=== PATIENT | female | born 1960 | race Caucasian/White ===

== ENCOUNTER 2025-10-30 11:27 | Inpatient (IN) ==
--- NOTE | 2025-10-30 12:03 | Emergency Department Note ---
Impression & Plan Closed fracture of neck of left femur, Fall ED Provider Note CHIEF COMPLAINT: Left hip fracture HISTORY OF PRESENT ILLNESS: This 64-year-old female patient presents to the emergency department via ambulance from [facility] for evaluation of left hip fracture. Per [facility] staff, the patient fell on Thursday while getting out of bed. The patient landed on her left hip. The patient ambulated immediately after the fall, but on Thursday was not wanting to get out of bed. The patient was getting tramadol for pain control. On Thursday, the patient was complaining of pain in the left hip but was ambulatory despite the pain. She did have an x- ray of the left hip completed which was consistent with fracture. Patient was referred to the emergency department for further evaluation when the x-ray result returned. Per the patient's sister in law, "there is no report of a fall". The patient's [id number] states that the patient was receiving tramadol throughout the weekend for her pain, but was diagnosed with a left hip fracture on x-ray yesterday. She states the cause of injury/fracture is unknown. She states the patient is on a Dementia unit and her reports of the history may not be clear. History provided by: Family Member, [facility] staff, Patient REVIEW OF SYSTEMS: A 10 system review of systems was performed with positives and pertinent negatives listed in the history of present illness. All other systems were reviewed and are negative. ALLERGIES: Elavil, Zithromax, cephalexin, diltiazem, Depakote, Monopril, Levaquin, spironolactone, Tarka, Zonegran PHYSICAL EXAM: VITALS: Vitals are noted on the nurse's note and reviewed by myself. GENERAL: This is a 64 year old female, in no acute distress, nondiaphoretic, well-developed well-nourished. SKIN: The skin was without rashes, erythema, edema, or bruising. There is no tenting of the skin. Capillary refill less than 2 seconds. HEAD: Normocephalic atraumatic. EARS: External auditory canals clear, tympanic membranes pearly gutierrez without erythema or effusion bilaterally. No hemotympanum. Negative spencer sign EYES: Pupils equal round and reactive to light and accommodation. Conjunctivae without injection, sclerae without icterus. Extraocular movements intact. NOSE: Patent, turbinates without inflammation or discharge. No sinus tenderness. MOUTH: Mucous membranes moist. Tonsils are not enlarged. Pharynx without erythema or exudate. Uvula midline. Airway patent. Tongue does not deviate. NECK: Supple without nuchal rigidity. No lymphadenopathy. Cervical spine is nontender. No JVD. HEART: Regular rate and rhythm without murmurs gallops or rubs. LUNGS: Clear to auscultation bilaterally without wheezes, rales or rhonchi. No retractions or accessory muscle use. ABDOMEN: Positive bowel sounds x 4. Soft, nontender, without masses or organomegaly. Barrios sign negative. No guarding or rebound tenderness. MUSCULOSKELETAL: Tenderness to palpation of the anterior aspect of the left pelvis. No muscle atrophy, erythema, or edema noted. Full range of motion without joint tenderness in all extremities. No tenderness to palpation. Normal gait. Strength 5/5 throughout. NEURO: Patient was alert and oriented to person place and time. Normal sensation to light and sharp touch. Deep tendon reflexes 2+ throughout. No focal neurological deficits. An order was placed for continuous cardiac exercise physiologist. The monitor showed a normal sinus rhythm at a ventricular rate of 76 bpm, per my interpretation. EKG was reviewed by myself and found to be sinus bradycardia at a rate of 59 beats per minute and per my interpretation reveals no ST elevation or depression. No T wave inversion. No prior EKG available for comparison. Imaging as interpreted by myself and the radiologist revealed left femoral neck fracture, with radiologist interpretation as above. I agree with the radiologist's findings as based upon my independent interpretation. EMERGENCY DEPARTMENT COURSE: The patient was evaluated as above. The patient presents to the emergency department via ambulance for evaluation of left hip pain. The history is somewhat uncertain, as [facility] staff have provided history that the patient fell 3 days ago, though patient rrhisi-ak-xes/power of deputy attorney general notes there has been no documentation of the fall. Patient was apparently diagnosed as an outpatient with a hip fracture, but there was no documentation provided from the nursing facility regarding this and the patient's [id number] is uncertain of any of the details. Per patient's paperwork/POLST form, patient is to be comfort measures and DNR. Throughout work-up, patient's Czuzjw-[id number] states the patient is not to be comfort measures and would like to proceed with workup anticipating surgical intervention. IV access was obtained, labs were drawn. The patient was medicated with IV acetaminophen for pain control. Labs reviewed. Per my interpretation,No leukocytosis or anemia. No thrombocytopenia. Renal, hepatic function and electrolytes without significant abnormality. Coagulation studies unremarkable. Urinalysis with positive nitrates, white blood cells, leukocyte esterase, bacteria. X-ray of the left hip and pelvis was completed and reviewed by myself and radiologist as noted. This is consistent with a left femoral neck fracture. I discussed findings and workup with the patient and [id number] at bedside. I provided them with options of care, as the patient is listed as comfort measures only. The patient's yiqsho-fw-ipj notes that the patient is not to be comfort measures and that she would like to consider surgery in this patient given the fracture. I did offer to have orthopedics consult on the patient and provide options from their perspective. The patient [id number] would like to proceed with this. I discussed the case with Elvia Ramírez PA-C of orthopedics. She did agree to speak with the patient and family at bedside. She did request CT imaging of the hip. Please see orthopedics dictation regarding further workup and recommendations. Orthopedics did recommend that the patient be admitted to the medicine service and will consider surgery tomorrow. I discussed the case with Dr. Fried, hospitalist on-call. He did agree to evaluate the patient for admission. Please see hospitalist patient regarding ongoing management of this patient. Case was discussed with the attending physician. I attest that I have personally reviewed the patient medication list. I attest that I have reviewed the patient's blood pressure and it was found to be elevated. Suspect this to be situational in nature. GCS: 15 In the evaluation and treatment of this patient the following differential diagnoses were entertained: Fracture, dislocation, neurovascular compromise, compartment syndrome, soft tissue injury, as well as other pathologies. The chart was completed utilizing [employer] Speech voice recognition software. Grammatical errors, random word insertions, pronoun errors, and incomplete sentences are an occasional consequence of this system due to software limitations, ambient noise, and hardware issues. Any formal questions or concerns about the content, text, or information contained within the body of this dictation should be directly addressed to the provider for clarification. Past Med/Surg History Problem List (Updated 10/30/25 @ 16:14 by Vanessa Wong PA-C) Fall (Acute) Closed fracture of neck of left femur (Acute) History of CVA (cerebrovascular accident) Fracture of femoral neck, left, closed Meningioma Fracture of lateral condyle of left elbow Migraine, unspecified, not intractable, without status migrainosus Sleep apnea Cervicalgia Vitamin D3 deficiency Benign essential hypertension Unspecified dementia, unspecified severity, without behavioral disturbance, psychotic disturbance, mood disturbance, and anxiety Nontraumatic intracranial hemorrhage, unspecified Other amnesia Type 2 diabetes mellitus without complications Cognitive communication deficit Muscle weakness Convulsion Social History Current Living Situation: Custodial Allergies Allergies Allergy/AdvReac Type Severity Reaction Status Date / Time amitriptyline [From Elavil] Allergy Unknown Unknown Verified 11/02/24 14:42 azithromycin [From Zithromax] Allergy Unknown Unknown Verified 11/02/24 14:42 cephalexin Allergy Unknown Unknown Verified 11/02/24 14:42 diltiazem Allergy Unknown Unknown Verified 11/02/24 14:42 divalproex sodium Allergy Unknown Unknown Verified 11/02/24 14:42 [From Depakote] fosinopril [From Monopril] Allergy Unknown Unknown Verified 11/02/24 14:42 levofloxacin [From Levaquin] Allergy Unknown Unknown Verified 11/02/24 14:42 spironolactone Allergy Unknown Unknown Verified 11/02/24 14:42 trandolapril [From Tarka] Allergy Unknown Unknown Verified 11/02/24 14:42 verapamil [From Tarka] Allergy Unknown Unknown Verified 11/02/24 14:42 zonisamide [From Zonegran] Allergy Unknown Unknown Verified 11/02/24 14:42 Home Meds Home Medications Medication Instructions Recorded Confirmed acetaminophen 325 mg capsule 650 mg PO Q6H PRN Fever Or Pain 02/09/24 02/01/25 amlodipine 10 mg tablet 10 mg PO HS 02/09/24 11/02/24 bisacodyl 10 mg rectal suppository 10 mg [place] DAILY PRN Constipation 02/09/24 02/01/25 (Dulcolax (bisacodyl)) escitalopram oxalate 5 mg tablet 10 mg PO DAILY 02/09/24 02/01/25 hydralazine 50 mg tablet 50 mg PO TID 02/09/24 02/01/25 hydrochlorothiazide 12.5 mg tablet 12.5 mg PO DAILY 02/09/24 02/01/25 insulin glargine 100 unit/mL (3 10 unit subcut QPM 02/09/24 02/01/25 mL) subcutaneous pen (Basaglar KwikPen U-100 Insulin) magnesium hydroxide 400 mg/5 mL 400 mg PO DAILY PRN Constipation 02/09/24 02/01/25 oral suspension (Milk of Magnesia) potassium chloride 20 mEq 40 meq PO BID 02/09/24 11/02/24 tablet,extended release sennosides 8.6 mg tablet (Senokot) 8.6 mg PO DAILY 02/09/24 11/02/24 sodium phosphates 19 gram-7 118 ml KY DAILY PRN Constipation 02/09/24 11/02/24 gram/118 mL enema buspirone 10 mg tablet 10 mg PO TID 02/11/24 02/01/25 carvedilol 12.5 mg tablet (Coreg) 6.25 mg PO BID 02/11/24 02/01/25 acetaminophen 500 mg tablet 500 mg PO Q12 03/12/24 02/01/25 (Tylenol Extra Strength) atorvastatin 20 mg tablet 20 mg PO DAILY 02/01/25 02/01/25 lamotrigine 150 mg tablet 150 mg PO DAILY 02/01/25 02/01/25 (Lamictal) propranolol 10 mg tablet 10 mg PO BID 02/01/25 02/01/25 Results & Data (ED) Vital Signs Vital Signs - 24 hr 10/30/25 11:16 10/30/25 11:45 10/30/25 13:41 Pulse Rate 76 54 L Pulse Rate [Apical] 76 Pulse Rhythm Regular Pulse Rhythm [Apical] Regular Pulse Strength Normal Pulse Strength [Apical] Normal Respiratory Rate 18 16 Respiratory Effort / Characteristics Non-Labored Spontaneous Non-Labored Spontaneous Respiratory Depth Normal Normal Respiratory Pattern Blood Pressure 156/96 H Blood Pressure [Right Arm] 156/96 H Blood Pressure Mean 116 Blood Pressure Mean [Right Arm] 116 Pulse Oximetry 93 96 Oxygen Delivery Method Room Air Room Air Sepsis New/Unexplained Change in Mental Status No Sepsis Action Taken by Nursing No Action Required 10/30/25 13:45 Pulse Rate Pulse Rate [Apical] 63 Pulse Rhythm Pulse Rhythm [Apical] Regular Pulse Strength Pulse Strength [Apical] Normal Respiratory Rate 16 Respiratory Effort / Characteristics Non-Labored Spontaneous Respiratory Depth Normal Respiratory Pattern Regular Blood Pressure Blood Pressure [Right Arm] 178/91 H Blood Pressure Mean Blood Pressure Mean [Right Arm] 120 Pulse Oximetry 97 Oxygen Delivery Method Room Air Sepsis New/Unexplained Change in Mental Status Sepsis Action Taken by Nursing Laboratory Data 10/30/25 12:36 10/30/25 12:36 Lab Results 10/30/25 10/30/25 Range/Units 12:36 14:12 WBC 7.14 (4.8-10.8) K/ul RBC 4.57 (4.20-5.40) M/uL Hgb 13.4 (12.0-16.0) g/dL Hct 39.9 (37.0-47.0) % MCV 87.3 (80.0-100.0) fL MCH 29.3 (25.0-34.0) pg MCHC 33.6 (32.0-36.0) g/dL RDW Std Deviation 39.8 (36.4-46.3) fL RDW Coeff of Max 12.5 (11.5-14.5) % Plt Count 216 (130-400) K/uL MPV 9.9 (9.4-12.4) fL Immature Gran % (Auto) 0.3 % Neut % (Auto) 65.4 % Lymph % (Auto) 18.9 % [place] % (Auto) 10.5 % Eos % (Auto) 4.5 % Baso % (Auto) 0.4 % Neut # (Auto) 4.67 (1.40-6.50) K/uL Lymph # (Auto) 1.35 (1.20-3.40) K/uL [place] # (Auto) 0.75 H (0.11-0.59) K/uL Eos # (Auto) 0.32 (0.00-0.50) K/uL Baso # (Auto) 0.03 (0.00-0.20) K/uL Immature Gran # (Auto) 0.02 (0.01-0.20) K/uL PT 10.9 (9.0-12.0) Seconds INR 1.0 (0.9-1.1) APTT 26 (21-31) Seconds PTT Ratio 1.0 Sodium 138 (136-145) mmol/L Potassium 4.8 (3.5-5.1) mmol/L Chloride 107 (98-107) mmol/L Carbon Dioxide 25 (21-32) mmol/L Anion Gap 6 (3-11) BUN 17 (6-23) mg/dl Creatinine 0.81 (0.6-1.2) mg/dl Est Cr Clr Drug Dosing 67.0 ml/min eGFR 80.01 BUN/Creatinine Ratio 21.0 H (10-20) Glucose 129 H (70-99(Fasting)) mg/dl Calcium 8.8 (8.6-10.3) mg/dl Total Bilirubin 0.5 (0.2-1.0) mg/dl AST 16 (13-39) U/L ALT 16 (7-52) U/L Alkaline Phosphatase 70 (34-104) U/L Total Protein 6.5 (6.0-8.3) gm/dl Albumin 3.9 (3.4-5.0) gm/dl Globulin 2.6 (2.5-4.0) gm/dl Albumin/Globulin Ratio 1.5 (0.9-2) Urine Color Yellow Urine Appearance Clear (Clear) Urine pH 6.0 (4.5-7.5) Ur Specific [place] 1.015 (1.000-1.030) Urine Protein Trace H (Negative) Urine Glucose (UA) Negative (Negative) Urine Ketones Negative (Negative) Urine Blood Negative (Negative) Urine Nitrite Positive A (Negative) Urine Bilirubin Negative (Negative) Urine Urobilinogen Negative (Negative) Ur Leukocyte Esterase 2+ H (Negative) Urine WBC (Auto) >50 H (0-5) /hpf Urine RBC (Auto) 0-2 (0-2) /hpf U Hyaline Cast (Auto) 3-5 H (0-2) /lpf U Epithel Cells (Auto) 3-5 H (0-2) /hpf Urine Bacteria (Auto) 4+ H (None Seen) Urine Comment Administered Medications Discontinued Medications Acetaminophen (Acetaminophen 500 Mg Tab) 1,000 mg PO NOW STA Stop: 10/30/25 11:59 Last Admin: 10/30/25 12:44 Dose: Not Given Documented By: nrs Acetaminophen (Ofirmev) 1,000 mg in 100 mls @ 400 mls/hr IV NOW STA Stop: 10/30/25 12:29 Last Infusion: 10/30/25 13:10 Dose: Infused Documented By: nrs Admin: 10/30/25 12:43 Dose: 400 mls/hr Documented By: nrs Imaging Data Radiologist's Impression: Hip/Pelvis X-Ray 10/30/25 11:58 XR hip LT 2V w pelvis CLINICAL HISTORY: fall 3 days ago, left hip/anterior pelvic pain COMPARISON: None FINDINGS: There is an acute appearing impacted subcapital left femoral neck fracture. There is an age indeterminate fracture of the left inferior pubic ramus. No proximal right femoral fracture is present. Sacroiliac joints and symphysis pubis are intact. There is moderate left and mild right hip osteoarthritis. IMPRESSION: 1. Acute appearing impacted subcapital left femoral neck fracture. 2. Age indeterminate minimally displaced fracture of the left inferior pubic ramus. ACT 112: Negative or not required by law. Electronically signed by: Dmitriy Hinds M.D. 10/30/2025 2:14 PM Chest X-Ray 10/30/25 12:17 XR chest 1V not portable HISTORY: 64 years-old Female hip fracture, ?fall acute chest trauma status post fall COMPARISON: None TECHNIQUE: AP view the chest FINDINGS: Cardiac silhouette is enlarged. Spondylitic spurring of the spine. No pneumothorax, pleural effusion, airspace consolidation or pulmonary edema. IMPRESSION: No acute process of the chest. ACT 112: Negative or not required by law. The above report was generated using voice recognition software. It may contain grammatical, syntax or spelling errors. Electronically signed by: Martinez Ascencio M.D. 10/30/2025 1:[address] 10/30/25 15:03 CT hip LT wo con HISTORY: 64 years-old Female left hip fracture acute left hip pain COMPARISON: Pelvis and hip radiographs of same day TECHNIQUE: Multiple axial CT images of the left hip were obtained without IV contrast. A dose lowering technique was used consistent with the principals of ALARA. FINDINGS: Decompressed bladder with Higuera catheter in place. Moderate fecal retention in the rectum. Moderate atherosclerosis of the iliac and femoral arteries. No acute intramuscular hematoma. There is a trace joint effusion/hemarthrosis of the left hip. Demineralized appearance of the bones with moderate left hip osteoarthritis. Healed chronic fracture left inferior pubic ramus. There is an acute, comminuted and impacted fracture of the left femoral neck which includes the transcervical and subcapital distributions. No intertrochanteric or subtrochanteric extension. IMPRESSION: 1. Acute, comminuted and impacted fracture of the left femoral neck. 2. Healed chronic fracture deformity of the left inferior pubic ramus. 3. Moderate osteoarthritis of the left hip. ACT 112: Negative or not required by law. The above report was generated using voice recognition software. It may contain grammatical, syntax or spelling errors. Electronically signed by: Martinez Ascencio M.D. 10/30/2025 3:52 PM Discharge Plan Visit Data Chief Complaint: Hip Pain Stated Complaint: HIP PAIN ED Provider: Letitia Vivas ED Midlevel Provider: Vanessa Wong Discharge Problem: Closed fracture of neck of left femur, Fall Patient Disposition: Admitted As Inpatient Condition: Good Forms Stand Alone Forms: [facility] Prescriptions Prescriptions: No Action atorvastatin 20 mg tablet 20 mg PO DAILY lamotrigine [Lamictal] 150 mg tablet 150 mg PO DAILY propranolol 10 mg tablet 10 mg PO BID acetaminophen 325 mg capsule 650 mg PO Q6H PRN (Reason: Fever Or Pain) amlodipine 10 mg tablet 10 mg PO HS insulin glargine [Basaglar KwikPen U-100 Insulin] 100 unit/mL (3 mL) insulin pen 10 unit subcut QPM bisacodyl [Dulcolax (bisacodyl)] 10 mg suppository 10 mg KY DAILY PRN (Reason: Constipation) sodium phosphates 19-7 gram/118 mL enema 118 ml [place] DAILY PRN (Reason: Constipation) escitalopram oxalate 5 mg tablet 10 mg PO DAILY hydralazine 50 mg tablet 50 mg PO TID hydrochlorothiazide 12.5 mg tablet 12.5 mg PO DAILY magnesium hydroxide [Milk of Magnesia] 400 mg/5 mL suspension 400 mg PO DAILY PRN (Reason: Constipation) potassium chloride 20 mEq tablet extended release 40 meq PO BID sennosides [Senokot] 8.6 mg tablet 8.6 mg PO DAILY buspirone 10 mg tablet 10 mg PO TID carvedilol [Coreg] 12.5 mg tablet 6.25 mg PO BID Rx Instructions: must administer with a meal/food acetaminophen [Tylenol Extra Strength] 500 mg Tablet 500 mg PO Q12 Referrals Referrals: Vel Jaime [Non-Staff] -
[2025-10-30] MEDS: ACETAMINOPHEN 1,000 MG/100 ML VIAL IV STA (12:43)
[2025-10-30] MEDS: ACETAMINOPHEN 500 MG TAB PO STA (12:44)
[2025-10-30 13:03] LABS: Hematocrit (blood only) 39.9 % (37.0-47.0); Hemoglobin 13.4 g/dL (12.0-16.0); Immature Granulocytes # (auto) 0.02 K/uL (0.01-0.20); Immature Granulocytes % (auto) 0.3 %; Mean Corpuscular Hemoglobin 29.3 pg (25.0-34.0); Mean Corpuscular Volume 87.3 fL (80.0-100.0); Platelet Count 216 K/uL (130-400); RDW Standard Deviation 39.8 fL (36.4-46.3); Red Blood Count 4.57 M/uL (4.20-5.40); White Blood Count 7.14 K/ul (4.8-10.8)
[2025-10-30 13:11] LABS: Alanine Aminotransferase 16.0 U/L (7-52); Albumin Globulin Ratio 1.5 (0.9-2); Albumin Level 3.9 gm/dl (3.4-5.0); Alkaline Phosphatase 70.0 U/L (34-104); Anion Gap 6.0 (3-11); Bilirubin,Total 0.5 mg/dl (0.2-1.0); Blood Urea Nitrogen 17.0 mg/dl (6-23); Calcium 8.8 mg/dl (8.6-10.3); Carbon Dioxide 25.0 mmol/L (21-32); Chloride 107.0 mmol/L (98-107); Creatinine Clr Calc Pharmacy 67.0 ml/min; Globulin 2.6 gm/dl (2.5-4.0); Glucose 129.0 mg/dl (70-99(Fasting)); Potassium 4.8 mmol/L (3.5-5.1); Sodium 138.0 mmol/L (136-145); Total Protein 6.5 gm/dl (6.0-8.3)
[2025-10-30 13:22] LABS: INR 1.0 (0.9-1.1); Partial Thromboplastin Time 26 Seconds (21-31); Prothrombin Time 10.9 Seconds (9.0-12.0)
--- NOTE | 2025-10-30 13:50 | XRay Report ---
XR chest 1V not portable HISTORY: 64 years-old Female hip fracture, ?fall acute chest trauma status post fall COMPARISON: None TECHNIQUE: AP view the chest FINDINGS: Cardiac silhouette is enlarged. Spondylitic spurring of the spine. No pneumothorax, pleural effusion, airspace consolidation or pulmonary edema. IMPRESSION: No acute process of the chest. ACT 112: Negative or not required by law. The above report was generated using voice recognition software. It may contain grammatical, syntax o r spelling errors. Electronically signed by: Martinez Ascencio M.D. 10/30/2025 1:49 PM
--- NOTE | 2025-10-30 14:15 | XRay Report ---
XR hip LT 2V w pelvis CLINICAL HISTORY: fall 3 days ago, left hip/anterior pelvic pain COMPARISON: None FINDINGS: There is an acute appearing impacted subcapital left femoral neck fracture. There is an ag e indeterminate fracture of the left inferior pubic ramus. No proximal right femoral fracture is pres ent. Sacroiliac joints and symphysis pubis are intact. There is moderate left and mild right hip oste oarthritis. IMPRESSION: 1. Acute appearing impacted subcapital left femoral neck fracture. 2. Age indeterminate minimally displaced fracture of the left inferior pubic ramus. ACT 112: Negative or not required by law. Electronically signed by: Dmitriy Hinds M.D. 10/30/2025 2:14 PM
[2025-10-30 14:38] LABS: Appearance Urine Clear (Clear); Bacteria Urine Automated 4+ (None Seen); Glucose Urine UA Negative (Negative); RBC Urine Automated 0-2 /hpf (0-2); WBC Urine Automated >50 /hpf (0-5)
--- NOTE | 2025-10-30 15:25 | Orthopedic Consultation ---
Date of Service October 30, 2025 Assessment & Plan (1) Fracture of femoral neck, left, closed: Case/imaging reviewed and discussed with Dr Elmore * Recommend admission to hospitalist service to clear for possible OR tomorrow, CT to further evaluate fracture * Disposition: TBD * Daily treatment: Physical Therapy/ Occupational Therapy per protocol * Weight bearing status: non weight bearing left lower extremity until post-op * Pain control * Remainder care per primary team * Discussed with patient and her POA (sister in law) risks and benefits of surgery including pain, infection, bleeding, risk of anesthesia, prolonged healing time, incomplete relief of symptoms, injury to surrounding tissue and DVT they would like to proceed with surgery. Patient to be NPO after midnight for OR tomorrow. * * Patient seen and examined, impacted left femoral neck fracture. Discussed with patient and sister, plan for closed reduction and screw fixation of fracture. History of Present Illness Reason for Consultation: .Left femoral neck fracture Requesting Physician: .Dr. Marquez . Patient is a 64 y/o female with left hip pain after a [facility]. PMH including dementia, h/o CVA, type 2 DM, and HTN. Presents to hospital with left hip pain unable to ambulate. Current workup including left hip x-ray. Orthopedics consulted for management recommendations. At time of exam patient was laying on stretcher on right side with pain noted in left hip. Patients sister in law is present and POA and provides some history stating there has been some miscommunications between the jail and her. She was not made aware of a fall and it was reported she was ambulatory after the fall on Thursday but sister in law states she has been in bed since Thursday unable to ambulate. Pt is a DNR but sister in law states not comfort care measures. Allergies Allergy/AdvReac Type Severity Reaction Status Date / Time amitriptyline [From Elavil] Allergy Unknown Unknown Verified 11/02/24 14:42 azithromycin [From Zithromax] Allergy Unknown Unknown Verified 11/02/24 14:42 cephalexin Allergy Unknown Unknown Verified 11/02/24 14:42 diltiazem Allergy Unknown Unknown Verified 11/02/24 14:42 divalproex sodium Allergy Unknown Unknown Verified 11/02/24 14:42 [From Depakote] fosinopril [From Monopril] Allergy Unknown Unknown Verified 11/02/24 14:42 levofloxacin [From Levaquin] Allergy Unknown Unknown Verified 11/02/24 14:42 spironolactone Allergy Unknown Unknown Verified 11/02/24 14:42 trandolapril [From Tarka] Allergy Unknown Unknown Verified 11/02/24 14:42 verapamil [From Tarka] Allergy Unknown Unknown Verified 11/02/24 14:42 zonisamide [From Zonegran] Allergy Unknown Unknown Verified 11/02/24 14:42 Home Medications Medication Instructions Recorded Confirmed Type acetaminophen 325 mg capsule 650 mg PO Q6H 02/09/24 10/30/25 History bisacodyl 10 mg rectal suppository 10 mg RI DAILY PRN Constipation 02/09/24 10/30/25 History (Dulcolax (bisacodyl)) escitalopram oxalate 5 mg tablet 10 mg PO DAILY 02/09/24 10/30/25 History hydralazine 50 mg tablet 50 mg PO TID 02/09/24 10/30/25 History magnesium hydroxide 400 mg/5 mL 30 ml PO DAILY PRN Constipation 02/09/24 10/30/25 History oral suspension (Milk of Magnesia) potassium chloride 20 mEq 40 meq PO BID 02/09/24 10/30/25 History tablet,extended release sennosides 8.6 mg tablet (Senokot) 8.6 mg PO DAILY 02/09/24 10/30/25 History sodium phosphates 19 gram-7 118 ml RI DAILY PRN Constipation 02/09/24 10/30/25 History gram/118 mL enema atorvastatin 20 mg tablet 20 mg PO DAILY 02/01/25 10/30/25 History lamotrigine 150 mg tablet 200 mg PO DAILY 02/01/25 10/30/25 History (Lamictal) propranolol 10 mg tablet 20 mg PO BID 02/01/25 10/30/25 History Lactobacillus 1 cap PO DAILY 10/30/25 10/30/25 History Rodrigue External Lotion 1 applic topical BID 10/30/25 10/30/25 History acetaminophen 325 mg tablet 650 mg PO Q6H PRN pain/fever 10/30/25 10/30/25 History dextrose 40 % oral gel 1 ea PO UD PRN Hypoglycemia 10/30/25 10/30/25 History glucagon HCl 1 mg solution for 1 mg IM .[id number] PRN Hypoglycemia 10/30/25 10/30/25 History injection (Glucagon (HCl) Emergency Kit) ipratropium 0.5 mg-albuterol 3 mg 3 ml inhalation Q6H PRN 10/30/25 10/30/25 History (2.5 mg base)/3 mL nebulization cough/wheezing soln loperamide 2 mg tablet 1 mg PO Q12H PRN Diarrhea 10/30/25 10/30/25 History (Anti-Diarrheal (loperamide)) quetiapine 25 mg tablet (Seroquel) 25 mg PO HS 10/30/25 10/30/25 History tramadol 50 mg tablet 50 mg PO Q6H PRN Pain 10/30/25 10/30/25 History Past Med/Surg History Problem List (Updated 10/31/25 @ 11:35 by Ruddy Sotelo MD) UTI (urinary tract infection) Pathological fracture of left hip due to age-related osteoporosis Fall (Acute) Closed fracture of neck of left femur (Acute) Fracture of femoral neck, left, closed Fracture of lateral condyle of left elbow Migraine, unspecified, not intractable, without status migrainosus Nontraumatic intracranial hemorrhage, unspecified Other amnesia Muscle weakness Convulsion Medical History (Updated 10/31/25 @ 11:35 by Ruddy Sotelo MD) Encounter for pre-operative examination Hyperlipidemia Dementia History of seizure disorder 2018 abnormal EEG with seizure focus History of trigeminal neuralgia History of throat cancer Injury of right common femoral artery s/p repair 2018 Intracerebral aneurysm Carpal tunnel syndrome of left wrist 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 Meningioma Cognitive communication deficit Type 2 diabetes mellitus without complications Unspecified dementia, unspecified severity, without behavioral disturbance, psychotic disturbance, mood disturbance, and anxiety Benign essential hypertension Vitamin D3 deficiency Cervicalgia Sleep apnea History of CVA (cerebrovascular accident) right basal ganglia hemorrhagic stroke - 05/2023 Surgical History Hx of appendectomy Hx of cholecystectomy H/O brain surgery in addition to aneurysm clipping, patient has had multiple other surgeries per report S/P bilateral foot surgery multiple History of hysterectomy H/O partial adrenalectomy 10/01/2018 H/O ligation of vein right leg - 04/2015 S/P clamping of cerebral aneurysm [facility] - 2 clips Family History Mother Lung cancer Other Diabetes Hypertension Social History (Updated 10/31/25 @ 04:31 by Baldo Fried MD) Smoking Status: Former smoker Tobacco Type: Cigarettes Age Started Using Tobacco: 16; Smoking End Date: 2022; Hx Alcohol Use: No Hx Substance Use: No Preferred Language: Maori Communication Ability: Effective Principal Hardware Architect Required: No Beliefs That Will Affect Care: None marital status: Single Current Living Situation: [facility] current occupational status: disabled current occupation: research & development work How many Children do You have: 0 Other Information That Helps Us Care for You: No other: previously lived in [facility] Feels Safe at Home: Yes Safety Concerns: Feels Safe At This Time Assistive Devices: None Review of Systems All systems reviewed & are unremarkable except as noted in HPI & below. Physical Exam * General: Alert and oriented, no acute distress * Constitutional: well-developed, well-nourished. * Respiratory: Normal respiratory effort, no distress * Gastrointestinal: No tenderness to palpation, no rigidity or guarding. * Skin: No rash or lesion. * Neurologic: Grossly normal * Musculoskeletal: Left hip irritable with log roll. Tenderness along anterior aspect. AROM foot/ankle intact. Sensation intact plantar/dorsal foot. Brisk capillary refill. . Results & Data Results & Data Laboratory Results . Laboratory Results - last 48 hr 10/30/25 10/30/25 12:36 14:12 WBC 7.14 RBC 4.57 Hgb 13.4 Hct 39.9 MCV 87.3 MCH 29.3 MCHC 33.6 RDW Std Deviation 39.8 RDW Coeff of Max 12.5 Plt Count 216 MPV 9.9 Immature Gran % (Auto) 0.3 Neut % (Auto) 65.4 Lymph % (Auto) 18.9 [place] % (Auto) 10.5 Eos % (Auto) 4.5 Baso % (Auto) 0.4 Neut # (Auto) 4.67 Lymph # (Auto) 1.35 [place] # (Auto) 0.75 H Eos # (Auto) 0.32 Baso # (Auto) 0.03 Immature Gran # (Auto) 0.02 PT 10.9 INR 1.0 APTT 26 PTT Ratio 1.0 Sodium 138 Potassium 4.8 Chloride 107 Carbon Dioxide 25 Anion Gap 6 BUN 17 Creatinine 0.81 Est Cr Clr Drug Dosing 67.0 eGFR 80.01 BUN/Creatinine Ratio 21.0 H Glucose 129 H Calcium 8.8 Total Bilirubin 0.5 AST 16 ALT 16 Alkaline Phosphatase 70 Total Protein 6.5 Albumin 3.9 Globulin 2.6 Albumin/Globulin Ratio 1.5 Urine Color Yellow Urine Appearance Clear Urine pH 6.0 Ur Specific Bronson 1.015 Urine Protein Trace H Urine Glucose (UA) Negative Urine Ketones Negative Urine Blood Negative Urine Nitrite Positive A Urine Bilirubin Negative Urine Urobilinogen Negative Ur Leukocyte Esterase 2+ H Urine WBC (Auto) >50 H Urine RBC (Auto) 0-2 U Hyaline Cast (Auto) 3-5 H U Epithel Cells (Auto) 3-5 H Urine Bacteria (Auto) 4+ H Urine Comment Diagnostic Findings . Hip/Pelvis X-Ray 10/30/25 11:58 XR hip LT 2V w pelvis CLINICAL HISTORY: fall 3 days ago, left hip/anterior pelvic pain COMPARISON: None FINDINGS: There is an acute appearing impacted subcapital left femoral neck fracture. There is an age indeterminate fracture of the left inferior pubic ramus. No proximal right femoral fracture is present. Sacroiliac joints and symphysis pubis are intact. There is moderate left and mild right hip osteoarthritis. IMPRESSION: 1. Acute appearing impacted subcapital left femoral neck fracture. 2. Age indeterminate minimally displaced fracture of the left inferior pubic ramus. ACT 112: Negative or not required by law. Electronically signed by: Dmitriy Hinds M.D. 10/30/2025 2:14 PM Chest X-Ray 10/30/25 12:17 XR chest 1V not portable HISTORY: 64 years-old Female hip fracture, ?fall acute chest trauma status post fall COMPARISON: None TECHNIQUE: AP view the chest FINDINGS: Cardiac silhouette is enlarged. Spondylitic spurring of the spine. No pneumothorax, pleural effusion, airspace consolidation or pulmonary edema. IMPRESSION: No acute process of the chest. ACT 112: Negative or not required by law. The above report was generated using voice recognition software. It may contain grammatical, syntax or spelling errors. Electronically signed by: Martinez Ascencio M.D. 10/30/2025 1:49 PM PG Care Time/CCT Total # of Minutes Spent Total Time Spent with Patient: Total time spent is greater than 50% in coordination of care (as documented) at patient's floor/unit and/or counseling patient: [place] [address] IN/OBS CONSULT LVL 4,60M Patient Type New Diagnoses Fracture of femoral neck, left, closed S72.002A
--- NOTE | 2025-10-30 15:54 | CT Scan Report ---
CT hip LT wo con HISTORY: 64 years-old Female left hip fracture acute left hip pain COMPARISON: Pelvis and hip radiographs of same day TECHNIQUE: Multiple axial CT images of the left hip were obtained without IV contrast. A dose lowerin g technique was used consistent with the principals of LONA. FINDINGS: Decompressed bladder with Higuera catheter in place. Moderate fecal retention in the rectum. Moderate a therosclerosis of the iliac and femoral arteries. No acute intramuscular hematoma. There is a trace j oint effusion/hemarthrosis of the left hip. Demineralized appearance of the bones with moderate left hip osteoarthritis. Healed chronic fracture left inferior pubic ramus. There is an acute, comminuted and impacted fracture of the left femoral neck which includes the transcervical and subcapital distri butions. No intertrochanteric or subtrochanteric extension. IMPRESSION: 1. Acute, comminuted and impacted fracture of the left femoral neck. 2. Healed chronic fracture deformity of the left inferior pubic ramus. 3. Moderate osteoarthritis of the left hip. ACT 112: Negative or not required by law. The above report was generated using voice recognition software. It may contain grammatical, syntax o r spelling errors. Electronically signed by: Martinez Ascencio M.D. 10/30/2025 3:52 PM
--- NOTE | 2025-10-30 16:19 | History & Physical Report ---
Date of Service October 30, 2025 Assessment & Plan (1) Closed fracture of neck of left femur: (2) Pathological fracture of left hip due to age-related osteoporosis: (3) UTI (urinary tract infection): (4) Benign essential hypertension: (5) Type 2 diabetes mellitus without complications: (6) Meningioma: (7) Hyperlipidemia: (8) Dementia: (9) S/P clamping of cerebral aneurysm: (10) H/O partial adrenalectomy: (11) History of CVA (cerebrovascular accident): (12) Vitamin D3 deficiency: Plan 64yo female with history of intracerebral aneurysm s/p clipping x 2 ([facility], date uncertain), dementia, meningioma, prior right basal ganglia 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 x-rays and CT confirm a left hip fracture. #left hip pathological fracture due to age-related osteoporosis - -appreciate orthopedic consult by [facility] -tentative plan is ORIF of L hip fracture on 10/31/25 -NPO after MN for such -start isotonic fluids tomorrow am while NPO -bedrest until surgery, zhou, pain meds prn -SCDs for DVT proph now, then post-op can use asa 81mg BID or other chemical means -check 25-OH vit D level am -has keflex allergy on allergy list; I reviewed multiple records and cannot find what her reaction was to such; to be safe will use vancomycin for preop prophylactic antibiotics -from a cardiopulmonary standpoint she appears optimized for surgery tomorrow -due to prior history of adrenalectomy (details unknown) will need to watch for any signs of adrenal insufficiency post-op #dementia - -advanced by history -currently in locked dementia unit at [facility]; her [id number] states that shortly after she was admitted to [facility] (personal care portion?) she escaped the building and shortly after that was placed in the dementia unit -at risk of hospital delirium -will order melatonin HS -avoid sedatives -delirium prevention strategies - blinds open during the day, closed at night, etc. -cont seroquel HS - chronic med for her #uncontrolled HTN - -suspect she did not have her medicines prior to coming to hospital and/or pain is contributing to high readings -simply resume her usual regimen of hydralazine and propranolol -titrate meds as needed #T2DM - -check Hba1c while here -check BSGs ac/hs -novolog SSI -add basal insulin if needed #history of meningioma - -has seen neurosurgery & neurology in [place] along with Dr Obrien with [facility] in the past -last documented MRI brain: -due to the fall she had and the abrasion on her nose I elected to get CT head and CT c-spine today -CT head without ICH; meningiomas and aneurysm clips seen; CT head stable -Cervical spine CT w/o fracture #history of intracerebral aneurysm s/p clipping - -[facility] - year of surgery uncertain, other details uncertain -clips stable on CT head today #history of right basal ganglia hemorrhagic stroke - -no ICH on CT head today #JORDAN - -not on CPAP or BIPAP by report #suspected UTI - -u/a suggestive of UTI -has keflex allergy, levaquin allergy - details unknown -thus, ertapenem x 1 now and future therapy will depend on urine cx results #history of seizure disorder - -dating back to 2017? 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 She currently resides in the locked dementia unit at [facility]. Throughout this weekend she had ongoing pain treated with tramadol. At some point on Thursday she had a left hip x-ray which ultimately showed evidence of a left hip fracture and therefore she was brought to [facility] for evaluation. Upon arrival to [facility] her x-rays indeed show evidence of a left hip fracture. During my assessment the patient was resting comfortably in bed. Her [id number] Joslyn was present at bedside who provided nearly all of the history. Patient herself only complained of pain in the left groin/left hip region. Denied headache, arm pain b/l, right leg pain, chest pain, back pain, or abdominal pain. Due to her dementia she was unable to provide any meaningful history. Multiple times she said she "fell at home." Allergies Allergy/AdvReac Type Severity Reaction Status Date / Time amitriptyline [From Elavil] Allergy Unknown Unknown Verified 11/02/24 14:42 azithromycin [From Zithromax] Allergy Unknown Unknown Verified 11/02/24 14:42 cephalexin Allergy Unknown Unknown Verified 11/02/24 14:42 diltiazem Allergy Unknown Unknown Verified 11/02/24 14:42 divalproex sodium Allergy Unknown Unknown Verified 11/02/24 14:42 [From Depakote] fosinopril [From Monopril] Allergy Unknown Unknown Verified 11/02/24 14:42 levofloxacin [From Levaquin] Allergy Unknown Unknown Verified 11/02/24 14:42 spironolactone Allergy Unknown Unknown Verified 11/02/24 14:42 trandolapril [From Tarka] Allergy Unknown Unknown Verified 11/02/24 14:42 verapamil [From Tarka] Allergy Unknown Unknown Verified 11/02/24 14:42 zonisamide [From Zonegran] Allergy Unknown Unknown Verified 11/02/24 14:42 Home Medications Medication Instructions Recorded Confirmed Type acetaminophen 325 mg capsule 650 mg PO Q6H 02/09/24 10/30/25 History bisacodyl 10 mg rectal suppository 10 mg PA DAILY PRN Constipation 02/09/24 10/30/25 History (Dulcolax (bisacodyl)) escitalopram oxalate 5 mg tablet 10 mg PO DAILY 02/09/24 10/30/25 History hydralazine 50 mg tablet 50 mg PO TID 02/09/24 10/30/25 History magnesium hydroxide 400 mg/5 mL 30 ml PO DAILY PRN Constipation 02/09/24 10/30/25 History oral suspension (Milk of Magnesia) potassium chloride 20 mEq 40 meq PO BID 02/09/24 10/30/25 History tablet,extended release sennosides 8.6 mg tablet (Senokot) 8.6 mg PO DAILY 02/09/24 10/30/25 History sodium phosphates 19 gram-7 118 ml PA DAILY PRN Constipation 02/09/24 10/30/25 History gram/118 mL enema atorvastatin 20 mg tablet 20 mg PO DAILY 02/01/25 10/30/25 History lamotrigine 150 mg tablet 200 mg PO DAILY 02/01/25 10/30/25 History (Lamictal) propranolol 10 mg tablet 20 mg PO BID 02/01/25 10/30/25 History Lactobacillus 1 cap PO DAILY 10/30/25 10/30/25 History Rodrigue External Lotion 1 applic topical BID 10/30/25 10/30/25 History acetaminophen 325 mg tablet 650 mg PO Q6H PRN pain/fever 10/30/25 10/30/25 History dextrose 40 % oral gel 1 ea PO UD PRN Hypoglycemia 10/30/25 10/30/25 History glucagon HCl 1 mg solution for 1 mg IM .[id number] PRN Hypoglycemia 10/30/25 10/30/25 History injection (Glucagon (HCl) Emergency Kit) ipratropium 0.5 mg-albuterol 3 mg 3 ml inhalation Q6H PRN 10/30/25 10/30/25 History (2.5 mg base)/3 mL nebulization cough/wheezing soln loperamide 2 mg tablet 1 mg PO Q12H PRN Diarrhea 10/30/25 10/30/25 History (Anti-Diarrheal (loperamide)) quetiapine 25 mg tablet (Seroquel) 25 mg PO HS 10/30/25 10/30/25 History tramadol 50 mg tablet 50 mg PO Q6H PRN Pain 10/30/25 10/30/25 History Past Med/Surg History Problem List (Updated 10/31/25 @ 04:32 by Baldo Fried MD) UTI (urinary tract infection) Pathological fracture of left hip due to age-related osteoporosis Fall (Acute) Closed fracture of neck of left femur (Acute) Fracture of femoral neck, left, closed Fracture of lateral condyle of left elbow Migraine, unspecified, not intractable, without status migrainosus Nontraumatic intracranial hemorrhage, unspecified Other amnesia Muscle weakness Convulsion Medical History (Updated 10/31/25 @ 04:32 by Baldo Fried MD) Hyperlipidemia Dementia History of seizure disorder 2018 abnormal EEG with seizure focus History of trigeminal neuralgia History of throat cancer Injury of right common femoral artery s/p repair 2018 Intracerebral aneurysm Carpal tunnel syndrome of left wrist 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 Meningioma Cognitive communication deficit Type 2 diabetes mellitus without complications Unspecified dementia, unspecified severity, without behavioral disturbance, psychotic disturbance, mood disturbance, and anxiety Benign essential hypertension Vitamin D3 deficiency Cervicalgia Sleep apnea History of CVA (cerebrovascular accident) right basal ganglia hemorrhagic stroke - 05/2023 Surgical History (Updated 10/31/25 @ 04:30 by Baldo Fried MD) Hx of appendectomy Hx of cholecystectomy H/O brain surgery in addition to aneurysm clipping, patient has had multiple other surgeries per report S/P bilateral foot surgery multiple History of hysterectomy H/O partial adrenalectomy 10/01/2018 H/O ligation of vein right leg - 04/2015 S/P clamping of cerebral aneurysm [facility] - 2 clips Family History (Updated 10/31/25 @ 04:30 by Baldo Fried MD) Mother Lung cancer Other Diabetes Hypertension Social History (Updated 10/31/25 @ 04:31 by Baldo Fried MD) Smoking Status: Former smoker Tobacco Type: Cigarettes Age Started Using Tobacco: 16; Hx Alcohol Use: No Hx Substance Use: No Preferred Language: Yi Communication Ability: Effective [employer] Required: No Beliefs That Will Affect Care: None marital status: Single Current Living Situation: Skilled Nursing current occupational status: disabled current occupation: research & development work How many Children do You have: 0 other: previously lived in [facility] Feels Safe at Home: Yes Assistive Devices: None Review of Systems 2 Review of Systems: ROS limited due to cognitive impairment however she denies the following - gen - fevers/chills eyes - blurry vision HENT - runny nose, sore throat, or ear pain face/head - facial pain or headache neck - neck pain CV - chest pain pulm - dyspnea GI - abd pain or vomiting; did state she had a little nausea, however - zhou now in place musculo - b/l arm pain, right leg pain; does c/o left hip pain neuro - headache spine - back pain Physical Exam 2 Physical Exam: gen - lying comfortably in bed, holding a stuffed animal, NAD eyes - PERRL HENT - MMM, no lesions, poor dentition; nose with an abrasion; no facial pain to palpation any location neck - no pain to palpation over the c-spine elements; no JVD, no lymph nodes, no goiter heart - RRR, s1 s2, no murmur lungs - CTA b/l abd - soft NT ND BS+ ext - left leg is mildly shortened vs the RLE; left leg slightly externally rotated; left proximal thigh mildly swollen in comparison to the RLE; pulses b/l feet 2+; no edema of ankles skin - no rash psych - oriented to person only neuro - strength 5/5 b/l arms; moves toes of left foot without issue; right leg strength 5/5 proximal and distal muscles; no facial droop; speech clear; DTRs 2+ b/l arms musculo - complete look at all limbs only shows the left hip findings as above; I do not see any other injury or area of trauma Results & Data Results & Data Vital Signs (Past 12 Hours) Vital Signs Pulse Pulse Resp BP BP Pulse Ox O2 Del Method 10/30/25 13:45 63 16 178/91 H 97 Room Air 10/30/25 13:41 54 L 10/30/25 11:45 76 16 156/96 H 96 Room Air 10/30/25 11:16 76 18 156/96 H 93 Room Air Laboratory Results Laboratory Results - last 24 hr 10/30/25 10/30/25 12:36 14:12 WBC 7.14 RBC 4.57 Hgb 13.4 Hct 39.9 MCV 87.3 MCH 29.3 MCHC 33.6 RDW Std Deviation 39.8 RDW Coeff of Max 12.5 Plt Count 216 MPV 9.9 Immature Gran % (Auto) 0.3 Neut % (Auto) 65.4 Lymph % (Auto) 18.9 [place] % (Auto) 10.5 Eos % (Auto) 4.5 Baso % (Auto) 0.4 Neut # (Auto) 4.67 Lymph # (Auto) 1.35 [place] # (Auto) 0.75 H Eos # (Auto) 0.32 Baso # (Auto) 0.03 Immature Gran # (Auto) 0.02 PT 10.9 INR 1.0 APTT 26 PTT Ratio 1.0 Sodium 138 Potassium 4.8 Chloride 107 Carbon Dioxide 25 Anion Gap 6 BUN 17 Creatinine 0.81 Est Cr Clr Drug Dosing 67.0 eGFR 80.01 BUN/Creatinine Ratio 21.0 H Glucose 129 H Calcium 8.8 Magnesium 2.0 Total Bilirubin 0.5 AST 16 ALT 16 Alkaline Phosphatase 70 Total Protein 6.5 Albumin 3.9 Globulin 2.6 Albumin/Globulin Ratio 1.5 Urine Color Yellow Urine Appearance Clear Urine pH 6.0 Ur Specific [place] 1.015 Urine Protein Trace H Urine Glucose (UA) Negative Urine Ketones Negative Urine Blood Negative Urine Nitrite Positive A Urine Bilirubin Negative Urine Urobilinogen Negative Ur Leukocyte Esterase 2+ H Urine WBC (Auto) >50 H Urine RBC (Auto) 0-2 U Hyaline Cast (Auto) 3-5 H U Epithel Cells (Auto) 3-5 H Urine Bacteria (Auto) 4+ H Urine Comment Diagnostic Findings Hip/Pelvis X-Ray 10/30/25 11:58 XR hip LT 2V w pelvis CLINICAL HISTORY: fall 3 days ago, left hip/anterior pelvic pain COMPARISON: None FINDINGS: There is an acute appearing impacted subcapital left femoral neck fracture. There is an age indeterminate fracture of the left inferior pubic ramus. No proximal right femoral fracture is present. Sacroiliac joints and symphysis pubis are intact. There is moderate left and mild right hip osteoarthritis. IMPRESSION: 1. Acute appearing impacted subcapital left femoral neck fracture. 2. Age indeterminate minimally displaced fracture of the left inferior pubic ramus. ACT 112: Negative or not required by law. Electronically signed by: Dmitriy Hinds M.D. 10/30/2025 2:14 PM Chest X-Ray 10/30/25 12:17 XR chest 1V not portable HISTORY: 64 years-old Female hip fracture, ?fall acute chest trauma status post fall COMPARISON: None TECHNIQUE: AP view the chest FINDINGS: Cardiac silhouette is enlarged. Spondylitic spurring of the spine. No pneumothorax, pleural effusion, airspace consolidation or pulmonary edema. IMPRESSION: No acute process of the chest. ACT 112: Negative or not required by law. The above report was generated using voice recognition software. It may contain grammatical, syntax or spelling errors. Electronically signed by: Martinez Ascencio M.D. 10/30/2025 1:[address] 10/30/25 15:03 CT hip LT wo con HISTORY: 64 years-old Female left hip fracture acute left hip pain COMPARISON: Pelvis and hip radiographs of same day TECHNIQUE: Multiple axial CT images of the left hip were obtained without IV contrast. A dose lowering technique was used consistent with the principals of LONA. FINDINGS: Decompressed bladder with Zhou catheter in place. Moderate fecal retention in the rectum. Moderate atherosclerosis of the iliac and femoral arteries. No acute intramuscular hematoma. There is a trace joint effusion/hemarthrosis of the left hip. Demineralized appearance of the bones with moderate left hip osteoarthritis. Healed chronic fracture left inferior pubic ramus. There is an acute, comminuted and impacted fracture of the left femoral neck which includes the transcervical and subcapital distributions. No intertrochanteric or subtrochanteric extension. IMPRESSION: 1. Acute, comminuted and impacted fracture of the left femoral neck. 2. Healed chronic fracture deformity of the left inferior pubic ramus. 3. Moderate osteoarthritis of the left hip. ACT 112: Negative or not required by law. The above report was generated using voice recognition software. It may contain grammatical, syntax or spelling errors. Electronically signed by: Martinez Ascencio M.D. 10/30/2025 3:[address] 10/30/25 17:16 CT cervical spine without IV contrast History: Trauma Comparison: None Technique: Using multidetector thin collimation helical acquisition technique, axial, coronal and sagittal CT images through the cervical spine were obtained without intravenous contrast. Dose reduction techniques were achieved by using automatic exposure control and/or adjustment of mA and/or kV according to patient size and/or use of iterative reconstruction technique. Findings: The cervical vertebrae are normally aligned. Straightened cervical lordosis. No acute fracture or subluxation. No prevertebral edema. Mild to moderate discogenic multilevel degenerative changes. Hypertrophic degenerative facet changes are seen. No abnormality of the paraspinous soft tissues. Impression: No acute fracture or traumatic subluxation. Electronically signed by Mevlin Ramírez 10-30-2025 6:[address] 10/30/25 17:16 CT head without contrast History: Fall Comparison: 10/22/2024 Technique: Using multidetector thin collimation helical acquisition technique, axial, coronal and sagittal CT images from the skull base to the vertex were obtained without intravenous contrast. Dose reduction techniques were achieved by using automatic exposure control and/or adjustment of mA and/or kV according to patient size and/or use of iterative reconstruction technique. Findings: No intracranial hemorrhage, mass-effect, or midline shift. The ventricles are proportionate to the cerebral sulci. The gutierrez to white matter differentiation of the cerebral hemispheres is preserved. The basal cisterns are patent. Scattered aneurysm coils about the sella similar to prior. Stable calcified densities overlying the right parietal and posterior frontal lobe, possibly meningiomas. There is moderate cerebral atrophy. Moderate, patchy low-attenuation changes in the white matter, most suggestive of sequelae of chronic small vessel ischemic disease. The visualized paranasal sinuses are clear. Mastoid air cells are clear. Impression: No acute intracranial pathology. Electronically signed by Melvin Ramírez 10-30-2025 6:08 PM ECG Additional Comments: EKG - NSR, no ST changes; LVH by voltage criteria Code Status & VTE Plan Code Status DNR/DNI - confirmed with pt's power of divorce attorney PG Care Time/CCT Total # of Minutes Spent Total Time Spent with Patient: Total time spent is greater than 50% in coordination of care (as documented) at patient's floor/unit and/or counseling patient: Coding Level of Care Code 80413 INT INP/OBS CARE 3/75MIN Diagnoses Closed fracture of neck of left femur S72.002A Pathological fracture of left hip due to age-related osteoporosis M80.052A UTI (urinary tract infection) N39.0 Benign essential hypertension I10 Type 2 diabetes mellitus without complications E11.9 Meningioma D32.9 Hyperlipidemia E78.5 Dementia F03.90 S/P clamping of cerebral aneurysm Z98.890; Z86.79 H/O partial adrenalectomy E89.6 History of CVA (cerebrovascular accident) Z86.73 Vitamin D3 deficiency E55.9
[2025-10-30] MEDS: ERTAPENEM 1000MG 1,000 MG/10 ML SYR IV STA (16:42)
[2025-10-30 17:11] LABS: Magnesium 2.0 mg/dl (1.7-2.4)
--- NOTE | 2025-10-30 18:08 | CT Scan Report ---
CT head without contrast History: Fall Comparison: 10/22/2024 Technique: Using multidetector thin collimation helical acquisition technique, axial, coronal and sagittal CT images from the skull base to the vertex were obtained without intravenous contrast. Dose reduction techniques were achieved by using automatic exposure control and/or adjustment of mA and/or kV according to patient size and/or use of iterative reconstruction technique. Findings: No intracranial hemorrhage, mass-effect, or midline shift. The ventricles are proportionate to the cerebral sulci. The gutierrez to white matter differentiation of the cerebral hemispheres is preserved. The basal cisterns are patent. Scattered aneurysm coils about the sella similar to prior. Stable calcified densities overlying the right parietal and posterior frontal lobe, possibly meningiomas. There is moderate cerebral atrophy. Moderate, patchy low-attenuation changes in the white matter, most suggestive of sequelae of chronic small vessel ischemic disease. The visualized paranasal sinuses are clear. Mastoid air cells are clear. Impression: No acute intracranial pathology. Electronically signed by Melvin Ramírez 10-30-2025 6:08 PM
--- NOTE | 2025-10-30 18:09 | CT Scan Report ---
CT cervical spine without IV contrast History: Trauma Comparison: None Technique: Using multidetector thin collimation helical acquisition technique, axial, coronal and sagittal CT images through the cervical spine were obtained without intravenous contrast. Dose reduction techniques were achieved by using automatic exposure control and/or adjustment of mA and/or kV according to patient size and/or use of iterative reconstruction technique. Findings: The cervical vertebrae are normally aligned. Straightened cervical lordosis. No acute fracture or subluxation. No prevertebral edema. Mild to moderate discogenic multilevel degenerative changes. Hypertrophic degenerative facet changes are seen. No abnormality of the paraspinous soft tissues. Impression: No acute fracture or traumatic subluxation. Electronically signed by Melvin Ramírez 10-30-2025 6:09 PM
[2025-10-30] MEDS ORDERED: ALBUT/IPRATROP 3MG/0.5MG NEB 3 ML VIAL INH PRN (18:25)
[2025-10-30] MEDS ORDERED: ONDANSETRON INJ 2 MG/ML 2 ML VIAL IV PRN (18:25)
[2025-10-30] MEDS ORDERED: VANCOMYCIN CONSULT ACTIVE PRN (18:25)
[2025-10-30] MEDS ORDERED: NALOXONE HCL 0.4 MG/1 ML VIAL/CARP IV PRN (18:25)
[2025-10-30] MEDS ORDERED: MoRPHine SULFATE 2 MG/ML CARP IV PRN (18:25)
[2025-10-30] MEDS: PROPRANOLOL HCL 20 MG TAB PO STA (18:47)
[2025-10-30 20:35] LABS: Influenza A virus by PCR Negative (Neg); Influenza B virus by PCR Negative (Neg); SARS CoV2 RNA(COVID-19) Ceph NEGATIVE (Negative)
[2025-10-30] MEDS: ACETAMINOPHEN 500 MG TAB PO SCH (20:48)
[2025-10-30] MEDS: PROPRANOLOL HCL 20 MG TAB PO SCH (20:49)
[2025-10-31] MEDS: SODIUM CHLORIDE 0.9% 1,000 ML IV SCH (04:47)
[2025-10-31] MEDS: VANCOMYCIN HCL 1,250 MG in SODIUM CHLORIDE 0.9% 250 ML IV SCH ×2 (05:40→14:34)
[2025-10-31] MEDS: INSULIN ASPART PER UNIT CHARGE SC SCH ×2 (06:05→17:00)
[2025-10-31 07:24] LABS: Anion Gap 10.0 (3-11); Blood Urea Nitrogen 18.0 mg/dl (6-23); Calcium 8.5 mg/dl (8.6-10.3); Carbon Dioxide 24.0 mmol/L (21-32); Chloride 106.0 mmol/L (98-107); Creatinine Clr Calc Pharmacy 55.5 ml/min; Glucose 102.0 mg/dl (70-99(Fasting)); Potassium 3.8 mmol/L (3.5-5.1); Sodium 140.0 mmol/L (136-145)
[2025-10-31 07:32] LABS: Thyroid Stimulating Hormone 2.979 uIu/ml (0.300-4.500)
[2025-10-31] MEDS: ESCITALOPRAM OXALATE 10 MG TAB PO SCH (07:48)
[2025-10-31] MEDS: ADVANCED PROBIOTIC 625 MG CAPSULE PO SCH (07:48)
[2025-10-31] MEDS: lamoTRIgine 100 MG TAB PO SCH (07:48)
[2025-10-31] MEDS: ATORVASTATIN 20 MG TAB PO SCH (07:49)
[2025-10-31 08:10] LABS: Hemoglobin A1C 6.0 % (4.5-5.6)
[2025-10-31] MEDS: SENNA 8.6 MG TAB PO SCH (09:14)
--- NOTE | 2025-10-31 09:40 | Orthopedic Progress Note ---
Date of Service October 31, 2025 Assessment & Plan (1) Closed fracture of neck of left femur: Case/imaging reviewed and discussed with Dr Elmore * Recommend left hip hemiarthroplasty vs JUSTIN, remain NPO until after surgery * Disposition: TBD * Daily treatment: Physical Therapy/ Occupational Therapy per protocol * Weight bearing status: non weight bearing left lower extremity until post-op * Pain control * Remainder care per primary team * Discussed with patient and her POA (sister in law) risks and benefits of surgery including pain, infection, bleeding, risk of anesthesia, prolonged healing time, incomplete relief of symptoms, injury to surrounding tissue and DVT they would like to proceed with surgery. She will be present later or available by phone to provide consent. Subjective . Patient is a 64 y/o female with left hip pain admitted yesterday after presenting to the ED following an apparent fall Thursday at residential. PMH including dementia, h/o CVA, type 2 DM, and HTN. Presents to hospital with left hip pain unable to ambulate. Patient notes continued left hip pain but otherwise states her sister in law will be coming later. Review of Systems All systems reviewed & are unremarkable except as noted in HPI & below. Physical Exam * General: Alert and oriented, no acute distress * Constitutional: well-developed, well-nourished. * Respiratory: Normal respiratory effort, no distress * Gastrointestinal: No tenderness to palpation, no rigidity or guarding. * Skin: No rash or lesion. * Neurologic: Grossly normal * Musculoskeletal: Left hip irritable with log roll. Tenderness along anterior aspect. AROM foot/ankle intact. Sensation intact plantar/dorsal foot. Brisk capillary refill. . . Results & Data Results & Data Laboratory Results Laboratory Results - last 24 hr 10/30/25 10/30/25 10/30/25 12:36 14:12 19:50 WBC 7.14 RBC 4.57 Hgb 13.4 Hct 39.9 MCV 87.3 MCH 29.3 MCHC 33.6 RDW Std Deviation 39.8 RDW Coeff of Max 12.5 Plt Count 216 MPV 9.9 Immature Gran % (Auto) 0.3 Neut % (Auto) 65.4 Lymph % (Auto) 18.9 [place] % (Auto) 10.5 Eos % (Auto) 4.5 Baso % (Auto) 0.4 Neut # (Auto) 4.67 Lymph # (Auto) 1.35 [place] # (Auto) 0.75 H Eos # (Auto) 0.32 Baso # (Auto) 0.03 Immature Gran # (Auto) 0.02 PT 10.9 INR 1.0 APTT 26 PTT Ratio 1.0 Sodium 138 Potassium 4.8 Chloride 107 Carbon Dioxide 25 Anion Gap 6 BUN 17 Creatinine 0.81 Est Cr Clr Drug Dosing 67.0 eGFR 80.01 BUN/Creatinine Ratio 21.0 H Glucose 129 H POC Glucose Estimat Average Glucose Hemoglobin A1c Calcium 8.8 Magnesium 2.0 Total Bilirubin 0.5 AST 16 ALT 16 Alkaline Phosphatase 70 Total Protein 6.5 Albumin 3.9 Globulin 2.6 Albumin/Globulin Ratio 1.5 TSH Urine Color Yellow Urine Appearance Clear Urine pH 6.0 Ur Specific [place] 1.015 Urine Protein Trace H Urine Glucose (UA) Negative Urine Ketones Negative Urine Blood Negative Urine Nitrite Positive A Urine Bilirubin Negative Urine Urobilinogen Negative Ur Leukocyte Esterase 2+ H Urine WBC (Auto) >50 H Urine RBC (Auto) 0-2 U Hyaline Cast (Auto) 3-5 H U Epithel Cells (Auto) 3-5 H Urine Bacteria (Auto) 4+ H Urine Comment SARS-CoV-2 (PCR) NEGATIVE Influenza Type A (PCR) Negative Influenza Type B (PCR) Negative RSV (RT-PCR) Negative 10/31/25 10/31/25 06:05 06:10 WBC RBC Hgb Hct MCV MCH MCHC RDW Std Deviation RDW Coeff of Max Plt Count MPV Immature Gran % (Auto) Neut % (Auto) Lymph % (Auto) [place] % (Auto) Eos % (Auto) Baso % (Auto) Neut # (Auto) Lymph # (Auto) [place] # (Auto) Eos # (Auto) Baso # (Auto) Immature Gran # (Auto) PT INR APTT PTT Ratio Sodium 140 Potassium 3.8 D Chloride 106 Carbon Dioxide 24 Anion Gap 10 BUN 18 Creatinine 0.86 Est Cr Clr Drug Dosing 55.5 eGFR 74.46 BUN/Creatinine Ratio 20.9 H Glucose 102 H POC Glucose 103 H Estimat Average Glucose 126 Hemoglobin A1c 6.0 H Calcium 8.5 L Magnesium Total Bilirubin AST ALT Alkaline Phosphatase Total Protein Albumin Globulin Albumin/Globulin Ratio TSH 2.979 Urine Color Urine Appearance Urine pH Ur Specific [place] Urine Protein Urine Glucose (UA) Urine Ketones Urine Blood Urine Nitrite Urine Bilirubin Urine Urobilinogen Ur Leukocyte Esterase Urine WBC (Auto) Urine RBC (Auto) U Hyaline Cast (Auto) U Epithel Cells (Auto) Urine Bacteria (Auto) Urine Comment SARS-CoV-2 (PCR) Influenza Type A (PCR) Influenza Type B (PCR) RSV (RT-PCR) . Diagnostic Findings Hip/Pelvis X-Ray 10/30/25 11:58 XR hip LT 2V w pelvis CLINICAL HISTORY: fall 3 days ago, left hip/anterior pelvic pain COMPARISON: None FINDINGS: There is an acute appearing impacted subcapital left femoral neck fracture. There is an age indeterminate fracture of the left inferior pubic ramus. No proximal right femoral fracture is present. Sacroiliac joints and symphysis pubis are intact. There is moderate left and mild right hip osteoarthritis. IMPRESSION: 1. Acute appearing impacted subcapital left femoral neck fracture. 2. Age indeterminate minimally displaced fracture of the left inferior pubic ramus. ACT 112: Negative or not required by law. Electronically signed by: Dmitriy Hinds M.D. 10/30/2025 2:14 PM Chest X-Ray 10/30/25 12:17 XR chest 1V not portable HISTORY: 64 years-old Female hip fracture, ?fall acute chest trauma status post fall COMPARISON: None TECHNIQUE: AP view the chest FINDINGS: Cardiac silhouette is enlarged. Spondylitic spurring of the spine. No pneumothorax, pleural effusion, airspace consolidation or pulmonary edema. IMPRESSION: No acute process of the chest. ACT 112: Negative or not required by law. The above report was generated using voice recognition software. It may contain grammatical, syntax or spelling errors. Electronically signed by: Martinez Ascencio M.D. 10/30/2025 1:[address] 10/30/25 15:03 CT hip LT wo con HISTORY: 64 years-old Female left hip fracture acute left hip pain COMPARISON: Pelvis and hip radiographs of same day TECHNIQUE: Multiple axial CT images of the left hip were obtained without IV contrast. A dose lowering technique was used consistent with the principals of ALARA. FINDINGS: Decompressed bladder with Higuera catheter in place. Moderate fecal retention in the rectum. Moderate atherosclerosis of the iliac and femoral arteries. No acute intramuscular hematoma. There is a trace joint effusion/hemarthrosis of the left hip. Demineralized appearance of the bones with moderate left hip osteoarthritis. Healed chronic fracture left inferior pubic ramus. There is an acute, comminuted and impacted fracture of the left femoral neck which includes the transcervical and subcapital distributions. No intertrochanteric or subtrochanteric extension. IMPRESSION: 1. Acute, comminuted and impacted fracture of the left femoral neck. 2. Healed chronic fracture deformity of the left inferior pubic ramus. 3. Moderate osteoarthritis of the left hip. ACT 112: Negative or not required by law. The above report was generated using voice recognition software. It may contain grammatical, syntax or spelling errors. Electronically signed by: Martinez Ascencio M.D. 10/30/2025 3:[address] 10/30/25 17:16 CT cervical spine without IV contrast History: Trauma Comparison: None Technique: Using multidetector thin collimation helical acquisition technique, axial, coronal and sagittal CT images through the cervical spine were obtained without intravenous contrast. Dose reduction techniques were achieved by using automatic exposure control and/or adjustment of mA and/or kV according to patient size and/or use of iterative reconstruction technique. Findings: The cervical vertebrae are normally aligned. Straightened cervical lordosis. No acute fracture or subluxation. No prevertebral edema. Mild to moderate discogenic multilevel degenerative changes. Hypertrophic degenerative facet changes are seen. No abnormality of the paraspinous soft tissues. Impression: No acute fracture or traumatic subluxation. Electronically signed by Melvin Ramírez 10-30-2025 6:[address] 10/30/25 17:16 CT head without contrast History: Fall Comparison: 10/22/2024 Technique: Using multidetector thin collimation helical acquisition technique, axial, coronal and sagittal CT images from the skull base to the vertex were obtained without intravenous contrast. Dose reduction techniques were achieved by using automatic exposure control and/or adjustment of mA and/or kV according to patient size and/or use of iterative reconstruction technique. Findings: No intracranial hemorrhage, mass-effect, or midline shift. The ventricles are proportionate to the cerebral sulci. The gutierrez to white matter differentiation of the cerebral hemispheres is preserved. The basal cisterns are patent. Scattered aneurysm coils about the sella similar to prior. Stable calcified densities overlying the right parietal and posterior frontal lobe, possibly meningiomas. There is moderate cerebral atrophy. Moderate, patchy low-attenuation changes in the white matter, most suggestive of sequelae of chronic small vessel ischemic disease. The visualized paranasal sinuses are clear. Mastoid air cells are clear. Impression: No acute intracranial pathology. Electronically signed by Melvin Ramírez 10-30-2025 6:08 PM . PG Care Time/CCT Total # of Minutes Spent Total Time Spent with Patient: Total time spent is greater than 50% in coordination of care (as documented) at patient's floor/unit and/or counseling patient: Coding [place] [address] SUB INP/OBS CARE 2/35MIN Patient Type Established Diagnoses Closed fracture of neck of left femur S72.002A
--- NOTE | 2025-10-31 11:32 | Anesthesiology Consultation ---
Date of Service October 31, 2025 Assessment & Plan (1) Encounter for pre-operative examination: Chart Review Chart Review: Acceptable Risk for Surgery and Patient NOT seen in Pre Admission Testing Consults Requested none History Surgery Operation Date: 10/31/25 11:45 Proposed Procedures p Left ORIF Hip Cannulated Screw - Neymar Marino MD Height/Weight Height: 5 ft Weight: 68.3 kg Allergies Allergy/AdvReac Type Severity Reaction Status Date / Time amitriptyline [From Elavil] Allergy Unknown Unknown Verified 11/02/24 14:42 azithromycin [From Zithromax] Allergy Unknown Unknown Verified 11/02/24 14:42 cephalexin Allergy Unknown Unknown Verified 11/02/24 14:42 diltiazem Allergy Unknown Unknown Verified 11/02/24 14:42 divalproex sodium Allergy Unknown Unknown Verified 11/02/24 14:42 [From Depakote] fosinopril [From Monopril] Allergy Unknown Unknown Verified 11/02/24 14:42 levofloxacin [From Levaquin] Allergy Unknown Unknown Verified 11/02/24 14:42 spironolactone Allergy Unknown Unknown Verified 11/02/24 14:42 trandolapril [From Tarka] Allergy Unknown Unknown Verified 11/02/24 14:42 verapamil [From Tarka] Allergy Unknown Unknown Verified 11/02/24 14:42 zonisamide [From Zonegran] Allergy Unknown Unknown Verified 11/02/24 14:42 Medications Home Medications Medication Instructions Recorded Confirmed Last Taken acetaminophen 325 mg capsule 650 mg PO Q6H 02/09/24 10/30/25 Unknown bisacodyl 10 mg rectal suppository 10 mg SC DAILY PRN Constipation 02/09/24 10/30/25 Unknown (Dulcolax (bisacodyl)) escitalopram oxalate 5 mg tablet 10 mg PO DAILY 02/09/24 10/30/25 Unknown hydralazine 50 mg tablet 50 mg PO TID 02/09/24 10/30/25 Unknown magnesium hydroxide 400 mg/5 mL 30 ml PO DAILY PRN Constipation 02/09/24 10/30/25 Unknown oral suspension (Milk of Magnesia) potassium chloride 20 mEq 40 meq PO BID 02/09/24 10/30/25 Unknown tablet,extended release sennosides 8.6 mg tablet (Senokot) 8.6 mg PO DAILY 02/09/24 10/30/25 Unknown sodium phosphates 19 gram-7 118 ml SC DAILY PRN Constipation 02/09/24 10/30/25 Unknown gram/118 mL enema atorvastatin 20 mg tablet 20 mg PO DAILY 02/01/25 10/30/25 Unknown lamotrigine 150 mg tablet 200 mg PO DAILY 02/01/25 10/30/25 Unknown (Lamictal) propranolol 10 mg tablet 20 mg PO BID 02/01/25 10/30/25 Unknown Lactobacillus 1 cap PO DAILY 10/30/25 10/30/25 Unknown Rodrigue External Lotion 1 applic topical BID 10/30/25 10/30/25 Unknown acetaminophen 325 mg tablet 650 mg PO Q6H PRN pain/fever 10/30/25 10/30/25 Unknown dextrose 40 % oral gel 1 ea PO UD PRN Hypoglycemia 10/30/25 10/30/25 Unknown glucagon HCl 1 mg solution for 1 mg IM .[id number] PRN Hypoglycemia 10/30/25 10/30/25 Unknown injection (Glucagon (HCl) Emergency Kit) ipratropium 0.5 mg-albuterol 3 mg 3 ml inhalation Q6H PRN 10/30/25 10/30/25 Unknown (2.5 mg base)/3 mL nebulization cough/wheezing soln loperamide 2 mg tablet 1 mg PO Q12H PRN Diarrhea 10/30/25 10/30/25 Unknown (Anti-Diarrheal (loperamide)) quetiapine 25 mg tablet (Seroquel) 25 mg PO HS 10/30/25 10/30/25 Unknown tramadol 50 mg tablet 50 mg PO Q6H PRN Pain 10/30/25 10/30/25 Unknown Active Medications Generic Name Dose Route Start Last Admin Trade Name Freq PRN Reason Stop Dose Admin Acetaminophen 1,000 mg 10/30/25 21:00 10/31/25 07:48 Acetaminophen 500 Mg Tab PO 11/29/25 20:59 1,000 mg TID FADI Administration Atorvastatin Calcium 20 mg 10/31/25 09:00 10/31/25 07:49 Atorvastatin 20 Mg Tab PO 11/30/25 08:59 20 mg DAILY FADI Administration Escitalopram Oxalate 10 mg 10/31/25 09:00 10/31/25 07:48 Escitalopram Oxalate 10 Mg Tab PO 11/30/25 08:59 10 mg DAILY FADI Administration Hydralazine HCl 50 mg 10/31/25 06:00 10/31/25 05:40 Hydralazine Tab 50 Mg Tab PO 11/30/25 05:59 50 mg Q8 FADI Administration Vancomycin HCl 1,250 mg/ 275 mls @ 200 mls/hr 10/31/25 06:00 10/31/25 07:15 Sodium Chloride IV 10/31/25 19:00 Infused PREOP FADI Infusion Sodium Chloride 1,000 mls @ 75 mls/hr 10/31/25 04:00 10/31/25 04:47 Nss IV 11/03/25 03:59 75 mls/hr .[id number] FADI Administration Insulin Aspart 0 units 10/31/25 06:00 10/31/25 06:05 Insulin Aspart Per Unit Charge SC 11/30/25 05:59 Not Given Q6 FADI Lactobacillus Acidophilus 625 mg 10/31/25 09:00 10/31/25 07:48 Advanced Probiotic 625 Mg Capsule PO 11/30/25 08:59 625 mg DAILY FADI Administration Lamotrigine 200 mg 10/31/25 09:00 10/31/25 07:48 Lamotrigine 100 Mg Tab PO 11/30/25 08:59 200 mg DAILY FADI Administration Oxycodone HCl 5 mg 10/30/25 18:25 10/31/25 07:47 Oxycodone Hcl Ir 5 Mg Tab (Immediate Release) PO 11/13/25 18:24 5 mg Q6H PRN Administration MODERATE Pain (4,5,6) & Pre PT Propranolol HCl 20 mg 10/30/25 21:00 10/31/25 09:14 Propranolol Hcl 20 Mg Tab PO 11/29/25 20:59 20 mg BID FADI Administration Quetiapine Fumarate 25 mg 10/30/25 21:00 10/30/25 20:48 Quetiapine Fumarate 25 Mg Tablet PO 11/29/25 20:59 25 mg HS FADI Administration Sennosides 8.6 mg 10/31/25 09:00 10/31/25 09:14 Senna 8.6 Mg Tab PO 11/30/25 08:59 8.6 mg DAILY FADI Administration Past Medical History Medical History (Updated 10/31/25 @ 11:35 by Ruddy Sotelo MD) Encounter for pre-operative examination Hyperlipidemia Dementia History of seizure disorder 2018 abnormal EEG with seizure focus History of trigeminal neuralgia History of throat cancer Injury of right common femoral artery s/p repair 2018 Intracerebral aneurysm Carpal tunnel syndrome of left wrist 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 pt had rt basal ganglia hemorrhagic stroke and since then she is having more cognitive problems and left arm spasticity and dysmetria. pt's daughter in law is main care-reworker. pt is now in residential and she is doing much better. in the past, after the stroke, pt would have wondering around at night and tangential thoughts and unable to dress or feed herself and hard to follow instruction but now she is doing much better with able to feed herself and have good conversation and follow instructions well at that residential. she is not having hallucinations. pt was seen by [facility] neurology clinic by physician assistant store director and she was sent for neurology evaluation for hx of seizure and stroke and cognition. EEG recently done, i read the study and it was normal. pt without any sign of seizure activities. pt also followed by neurosurgery for prior aneurysm clipping and meningioma. pt without falling or walking problem. pt mainly having short term memory issue and occasional confusion. Past Family History Family History Mother Lung cancer Other Diabetes Hypertension Past Surgical History Surgical History Hx of appendectomy Hx of cholecystectomy H/O brain surgery in addition to aneurysm clipping, patient has had multiple other surgeries per report S/P bilateral foot surgery multiple History of hysterectomy H/O partial adrenalectomy 10/01/2018 H/O ligation of vein right leg - 04/2015 S/P clamping of cerebral aneurysm [facility] - 2 clips Social History Smoking Status: Former smoker Smoking End Date: 2022 Hx Alcohol Use: No Hx Substance Use: No Physical Exam Vital Signs Last Vital Signs Temp 36.8 C 10/31/25 08:01 Pulse 65 10/31/25 08:01 Resp 17 10/31/25 08:01 BP 195/73 H 10/31/25 08:59 Pulse Ox 93 10/31/25 08:01 O2 Del Method Room Air 10/31/25 08:01 Testing Laboratory Results 10/30/25 12:36 10/31/25 06:10 PT 10.9 Seconds (9.0-12.0) 10/30/25 12:36 INR 1.0 (0.9-1.1) 10/30/25 12:36 APTT 26 Seconds (21-31) 10/30/25 12:36 Hemoglobin A1c 6.0 % (4.5-5.6) H 10/31/25 06:10 Urine Color Yellow 10/30/25 14:12 Urine Appearance Clear (Clear) 10/30/25 14:12 Urine pH 6.0 (4.5-7.5) 10/30/25 14:12 Ur Specific [place] 1.015 (1.000-1.030) 10/30/25 14:12 Urine Protein Trace (Negative) H 10/30/25 14:12 Urine Glucose (UA) Negative (Negative) 10/30/25 14:12 Urine Ketones Negative (Negative) 10/30/25 14:12 Urine Nitrite Positive (Negative) A 10/30/25 14:12 Ur Leukocyte Esterase 2+ (Negative) H 10/30/25 14:12 Urine WBC (Auto) >50 /hpf (0-5) H 10/30/25 14:12 Urine RBC (Auto) 0-2 /hpf (0-2) 10/30/25 14:12 U Hyaline Cast (Auto) 3-5 /lpf (0-2) H 10/30/25 14:12 U Epithel Cells (Auto) 3-5 /hpf (0-2) H 10/30/25 14:12 Urine Bacteria (Auto) 4+ (None Seen) H 10/30/25 14:12 10/31/25 06:05 POC Glucose 103 H Electrocardiogram Date: 10/30/25 Findings: + SB @ (59) Sinus bradycardia. Minimal LVH criteria. Borderline ECG. Chest X-Ray Date: 10/30/25 XR chest 1V not portable HISTORY: 64 years-old Female hip fracture, ?fall acute chest trauma status post fall COMPARISON: None TECHNIQUE: AP view the chest FINDINGS: Cardiac silhouette is enlarged. Spondylitic spurring of the spine. No pneumothorax, pleural effusion, airspace consolidation or pulmonary edema. IMPRESSION: No acute process of the chest.
[2025-10-31] MEDS ORDERED: PROPOFOL IV EMULSION 10 MG/ML 20 ML VIAL IV ONE (12:04)
[2025-10-31] MEDS ORDERED: ROCURONIUM BROMIDE 10 MG/ML 5 ML VIAL IV ONE (12:04)
[2025-10-31] MEDS ORDERED: ONDANSETRON INJ 2 MG/ML 2 ML VIAL ONE (12:04)
[2025-10-31] MEDS ORDERED: LIDOCAINE 2% 2 ML VIAL/AMP(20MG/ML) INFIL ONE (12:04)
[2025-10-31] MEDS ORDERED: DEXAMETHASONE SOD INJ 4 MG/ML VIAL ONE (12:04)
[2025-10-31] MEDS ORDERED: ATROPINE SULFATE 0.1 MG/ML 10ML SYR IV PRN (12:30)
[2025-10-31] MEDS ORDERED: ONDANSETRON INJ 2 MG/ML 2 ML VIAL IV PRN (12:30)
[2025-10-31] MEDS: LACTATED RINGER'S 1,000 ML IV SCH (12:51)
--- NOTE | 2025-10-31 12:57 | History & Physical Bridge Note ---
Date of Service October 31, 2025 History & Physical Bridge Note I have examined the patient, reviewed the History & Physical and in the interval since the performance of the History & Physical I have noted the following changes of clinical significance: no changes noted Closed reduction and screw fixation of impacted femoral neck fracture.
[2025-10-31] MEDS ORDERED: PHENYLEPHRINE HCL 10 MG/ML VIAL ONE (13:26)
[2025-10-31] MEDS: VANCOMYCIN HCL 1000MG/20ML VIAL IV ONE (14:34)
[2025-10-31] MEDS ORDERED: SUGAMMADEX SODIUM 200 MG/2 ML VIAL IV ONE (14:37)
--- NOTE | 2025-10-31 14:47 | Post Operative Brief Note ---
PG Immediate Post Op with CF Date of Surgery October 31, 2025 Pre & Post Diagnosis Operation Date: 10/31/25 11:45 Pre-Op Diagnosis: Closed fracture of neck of left femur Post-Op Diagnosis: Closed fracture of neck of left femur I identified the patient and participated in the time-out.: Yes Procedure Operation Date: 10/31/25 11:45 Actual Procedures p Left Hip Open Reduction Internal Fixation with Cannulated Screw(Left) - Neymar Marino MD Surgeon Neymar Marino MD Labor And Delivery Registered Nurse none Estimated Blood Loss 5 Findings Consistent with Post-Op Diagnosis Specimens Specimen Description: No specimen per surgeon Drains Higuera Catheter (Present upon arrival to the OR)
--- NOTE | 2025-10-31 15:28 | Fluoroscopy Report ---
FL hip LT 2-3V CLINICAL HISTORY: LEFT ORIF CANNULATED SCREWS COMPARISON STUDY: CT left hip 10/30/2025 FLUOROSCOPY TIME: 161.2 seconds FLUOROSCOPY IMAGES: 5 EXPOSURE DOSE: 47.5 mGy FINDINGS: Status post placement of 3 cannulated screws fixating the acute left femoral neck fracture. The screws appear intact. IMPRESSION: Fluoroscopic assistance as above. ACT 112: Negative or not required by law. Electronically signed by: Martinez Ascencio M.D. 10/31/2025 3:27 PM
--- NOTE | 2025-10-31 16:04 | Anesthesiology Progress Note ---
Date of Service October 31, 2025 Anesthesia Post Procedure Vital Signs Vital Signs: Temp Pulse Pulse Resp BP BP Pulse Ox 10/31/25 16:00 36.6 C 71 14 158/64 H 95 10/31/25 15:50 72 14 176/71 H 91 10/31/25 15:40 73 14 162/70 H 96 10/31/25 15:30 74 14 185/76 H 96 10/31/25 15:20 73 18 202/86 H 94 10/31/25 15:10 72 14 206/81 H 97 10/31/25 15:00 83 15 159/81 H 96 10/31/25 14:53 36.1 C L 68 12 172/68 H 91 10/31/25 12:05 36.7 C 62 20 217/84 H 95 10/31/25 11:50 37.0 C 61 17 203/71 H 92 10/31/25 08:59 195/73 H 10/31/25 08:01 36.8 C 65 17 185/92 H 93 10/31/25 08:00 57 L 10/31/25 04:50 36.5 C 62 17 197/70 H 97 10/31/25 04:30 10/30/25 22:59 36.8 C 71 16 150/71 H 92 10/30/25 21:44 76 10/30/25 19:31 36.8 C 63 16 184/78 H 180/76 H 93 10/30/25 18:42 63 10/30/25 18:28 36.9 C 64 14 207/101 H 93 10/30/25 18:25 36.9 C 64 14 207/101 H 93 10/30/25 18:25 10/30/25 16:46 66 18 207/110 H 97 Pulse Ox O2 Del Method O2 Del Method O2 Flow Rate 10/31/25 16:00 Nasal Cannula 2 10/31/25 15:50 Room Air 10/31/25 15:40 Room Air 10/31/25 15:30 Oxymask 2 10/31/25 15:20 Oxymask 5 10/31/25 15:10 Oxymask 5 10/31/25 15:00 Oxymask 10 10/31/25 14:53 Oxymask 5 10/31/25 12:05 Room Air 10/31/25 11:50 Room Air 10/31/25 08:59 10/31/25 08:01 Room Air 10/31/25 08:00 10/31/25 04:50 Room Air 10/31/25 04:30 97 Room Air 10/30/25 22:59 Room Air 10/30/25 21:44 10/30/25 19:31 Room Air 10/30/25 18:42 10/30/25 18:28 Room Air 10/30/25 18:25 Room Air 10/30/25 18:25 93 Room Air 10/30/25 16:46 Room Air Pain Intensity Left Hip: Pain Intensity: 6 Transfer of Care Handoff Completed per policy Notes Mental Status: alert / awake / arousable Patient Amnestic to Procedure: Yes Nausea / Vomiting: adequately controlled Pain: adequately controlled Airway Patency, RR, SpO2: stable & adequate BP & HR: stable & adequate Hydration State: stable & adequate Anesthetic Complications: no major complications apparent
[2025-10-31] MEDS ORDERED: Nursing to Pharmacy Communication SCH (16:45)
[2025-10-31] MEDS: ERTAPENEM 1000MG 1,000 MG/10 ML SYR IV SCH (19:35)
--- NOTE | 2025-10-31 21:06 | Hospitalist Progress Note ---
Date of Service October 31, 2025 Assessment & Plan (1) Closed fracture of neck of left femur: (2) Pathological fracture of left hip due to age-related osteoporosis: (3) UTI (urinary tract infection): (4) Benign essential hypertension: (5) Type 2 diabetes mellitus without complications: (6) Meningioma: (7) Hyperlipidemia: (8) Dementia: (9) S/P clamping of cerebral aneurysm: (10) H/O partial adrenalectomy: (11) History of CVA (cerebrovascular accident): (12) Vitamin D3 deficiency: Plan 64yo female with history of intracerebral aneurysm s/p clipping x 2 ([facility], date uncertain), dementia, meningioma, 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 x-rays and CT confirmed left hip fracture. Due to the nasal abrasion seen on exam and the uncertain details of the fall elected to get a CT head and CT cervical spine - both negative for fracture or ICH. #left hip pathological fracture due to age-related osteoporosis - -appreciate orthopedic consult by [facility] -s/p ORIF of L hip fracture by way of screws -cont pain control -cont zhou at least until tomorrow -25-OH Vit D level am -DVT proph - asa 81mg BID (prior hemorrhagic stroke was 2+ years ago, and CT head this admission negative) #dementia - -advanced by history -currently in locked dementia unit at [facility]; her [id number] states that shortly after she was admitted to [facility] (personal care portion?) she escaped the building and shortly after that was placed in the dementia unit -at risk of hospital delirium -cont melatonin HS -avoid sedatives -delirium prevention strategies - blinds open during the day, closed at night, etc. -cont seroquel HS - chronic med for her #uncontrolled HTN - -improved by simply resuming her usual regimen of hydralazine and propranolol -titrate meds as needed #T2DM - -Hba1c 6% -check BSGs ac/hs -novolog SSI -add basal insulin if needed -did get a dose of dexamethasone IV kelin-operatively -- suspect she will have high BSGs for about 24 hours post-op #history of meningioma - -has seen neurosurgery & neurology in [place] along with Dr Obrien with [facility] in the past -last documented MRI brain: -due to the fall she had and the abrasion on her nose I elected to get CT head and CT c-spine -CT head without ICH; meningiomas and aneurysm clips seen and stable -Cervical spine CT w/o fracture #history of intracerebral aneurysm s/p clipping - -[facility] - year of surgery uncertain, other details uncertain -clips stable on CT head #history of right basal ganglia hemorrhagic stroke - 2022 - -no ICH on CT head #JORDAN - -not on CPAP or BIPAP by report #klebsiella UTI - -has keflex allergy, levaquin allergy - details unknown -thus, ertapenem daily for now; day#2 of such -narrow the antibiotics, if able, depending on final culture result/sensitivities #history of seizure disorder - -dating back to 2017? 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 - Joslyn hCakagreyson - updated at bedside during the admission process yesterday labs in am Admission and Anticipated Discharge Date Admission Date: October 30, 2025 Subjective saw patient post-op from her left ORIF she was resting comfortably in bed she was sleeping, but easily awoke she denied pain in the left hip denied chest pain denied dyspnea op note reviewed - 5cc of blood loss only Review of Systems 2 Review of Systems: GI - no nausea/emesis/abd pain pulm - no cough CV - no orthopnea Physical Exam 2 Physical Exam: gen - lying comfortably in bed, holding a stuffed animal, NAD HENT - MMM, nose with healing abrasion neck - no JVD heart - RRR, s1 s2, no murmur lungs - CTA b/l abd - soft NT BS+; minimal distension ext - left leg dressings intact; left leg now same length as right leg; mild left thigh edema; no ankle edema; pulses b/l feet 2+ psych - oriented to person only Results & Data Results & Data Vital Signs (Past 12 Hours) Vital Signs Temp Pulse Resp BP BP Pulse Ox O2 Del Method 10/31/25 20:13 36.5 C 84 16 177/72 H 93 Nasal Cannula 10/31/25 19:40 92 Nasal Cannula 10/31/25 19:30 37.1 C 81 16 165/78 H 86 L Room Air 10/31/25 18:28 36.6 C 74 16 169/74 H 96 Nasal Cannula 10/31/25 17:45 36.6 C 69 15 146/67 H 96 Nasal Cannula 10/31/25 17:24 92 Nasal Cannula 10/31/25 17:16 36.6 C 68 16 145/75 H 88 L Room Air 10/31/25 17:00 36.5 C 85 15 146/72 H 96 Nasal Cannula 10/31/25 16:45 36.6 C 72 16 146/73 H 97 Nasal Cannula 10/31/25 16:30 36.6 C 73 16 152/77 H 93 Nasal Cannula 10/31/25 16:15 71 14 142/67 H 95 Nasal Cannula 10/31/25 16:00 36.6 C 71 14 158/64 H 95 Nasal Cannula 10/31/25 15:50 72 14 176/71 H 91 Room Air 10/31/25 15:40 73 14 162/70 H 96 Room Air 10/31/25 15:30 74 14 185/76 H 96 Oxymask 10/31/25 15:20 73 18 202/86 H 94 Oxymask 10/31/25 15:10 72 14 206/81 H 97 Oxymask 10/31/25 15:00 83 15 159/81 H 96 Oxymask 10/31/25 14:53 36.1 C L 68 12 172/68 H 91 Oxymask 10/31/25 12:05 36.7 C 62 20 217/84 H 95 Room Air 10/31/25 11:50 37.0 C 61 17 203/71 H 92 Room Air O2 Flow Rate 10/31/25 20:13 2 10/31/25 19:40 2 10/31/25 19:30 10/31/25 18:28 1 10/31/25 17:45 1 10/31/25 17:24 1 10/31/25 17:16 10/31/25 17:00 1 10/31/25 16:45 2 10/31/25 16:30 3 10/31/25 16:15 2 10/31/25 16:00 2 10/31/25 15:50 10/31/25 15:40 10/31/25 15:30 2 10/31/25 15:20 5 10/31/25 15:10 5 10/31/25 15:00 10 10/31/25 14:53 5 10/31/25 12:05 10/31/25 11:50 Laboratory Results Laboratory Results - last 48 hr 10/30/25 10/30/25 10/30/25 12:36 14:12 19:50 WBC 7.14 RBC 4.57 Hgb 13.4 Hct 39.9 MCV 87.3 MCH 29.3 MCHC 33.6 RDW Std Deviation 39.8 RDW Coeff of Max 12.5 Plt Count 216 MPV 9.9 Immature Gran % (Auto) 0.3 Neut % (Auto) 65.4 Lymph % (Auto) 18.9 Mccreary % (Auto) 10.5 Eos % (Auto) 4.5 Baso % (Auto) 0.4 Neut # (Auto) 4.67 Lymph # (Auto) 1.35 Mccreary # (Auto) 0.75 H Eos # (Auto) 0.32 Baso # (Auto) 0.03 Immature Gran # (Auto) 0.02 PT 10.9 INR 1.0 APTT 26 PTT Ratio 1.0 Sodium 138 Potassium 4.8 Chloride 107 Carbon Dioxide 25 Anion Gap 6 BUN 17 Creatinine 0.81 Est Cr Clr Drug Dosing 67.0 eGFR 80.01 BUN/Creatinine Ratio 21.0 H Glucose 129 H POC Glucose Estimat Average Glucose Hemoglobin A1c Calcium 8.8 Magnesium 2.0 Total Bilirubin 0.5 AST 16 ALT 16 Alkaline Phosphatase 70 Total Protein 6.5 Albumin 3.9 Globulin 2.6 Albumin/Globulin Ratio 1.5 TSH Urine Color Yellow Urine Appearance Clear Urine pH 6.0 Ur Specific [place] 1.015 Urine Protein Trace H Urine Glucose (UA) Negative Urine Ketones Negative Urine Blood Negative Urine Nitrite Positive A Urine Bilirubin Negative Urine Urobilinogen Negative Ur Leukocyte Esterase 2+ H Urine WBC (Auto) >50 H Urine RBC (Auto) 0-2 U Hyaline Cast (Auto) 3-5 H U Epithel Cells (Auto) 3-5 H Urine Bacteria (Auto) 4+ H Urine Comment SARS-CoV-2 (PCR) NEGATIVE Influenza Type A (PCR) Negative Influenza Type B (PCR) Negative RSV (RT-PCR) Negative 10/31/25 10/31/25 10/31/25 06:05 06:10 11:51 WBC RBC Hgb Hct MCV MCH MCHC RDW Std Deviation RDW Coeff of Max Plt Count MPV Immature Gran % (Auto) Neut % (Auto) Lymph % (Auto) Mccreary % (Auto) Eos % (Auto) Baso % (Auto) Neut # (Auto) Lymph # (Auto) Mccreary # (Auto) Eos # (Auto) Baso # (Auto) Immature Gran # (Auto) PT INR APTT PTT Ratio Sodium 140 Potassium 3.8 D Chloride 106 Carbon Dioxide 24 Anion Gap 10 BUN 18 Creatinine 0.86 Est Cr Clr Drug Dosing 55.5 eGFR 74.46 BUN/Creatinine Ratio 20.9 H Glucose 102 H POC Glucose 103 H 103 H Estimat Average Glucose 126 Hemoglobin A1c 6.0 H Calcium 8.5 L Magnesium Total Bilirubin AST ALT Alkaline Phosphatase Total Protein Albumin Globulin Albumin/Globulin Ratio TSH 2.979 Urine Color Urine Appearance Urine pH Ur Specific [place] Urine Protein Urine Glucose (UA) Urine Ketones Urine Blood Urine Nitrite Urine Bilirubin Urine Urobilinogen Ur Leukocyte Esterase Urine WBC (Auto) Urine RBC (Auto) U Hyaline Cast (Auto) U Epithel Cells (Auto) Urine Bacteria (Auto) Urine Comment SARS-CoV-2 (PCR) Influenza Type A (PCR) Influenza Type B (PCR) RSV (RT-PCR) 10/31/25 10/31/25 10/31/25 12:09 15:11 16:48 WBC RBC Hgb Hct MCV MCH MCHC RDW Std Deviation RDW Coeff of Max Plt Count MPV Immature Gran % (Auto) Neut % (Auto) Lymph % (Auto) Mccreary % (Auto) Eos % (Auto) Baso % (Auto) Neut # (Auto) Lymph # (Auto) Mccreary # (Auto) Eos # (Auto) Baso # (Auto) Immature Gran # (Auto) PT INR APTT PTT Ratio Sodium Potassium Chloride Carbon Dioxide Anion Gap BUN Creatinine Est Cr Clr Drug Dosing eGFR BUN/Creatinine Ratio Glucose POC Glucose 104 H 147 H 153 H Estimat Average Glucose Hemoglobin A1c Calcium Magnesium Total Bilirubin AST ALT Alkaline Phosphatase Total Protein Albumin Globulin Albumin/Globulin Ratio TSH Urine Color Urine Appearance Urine pH Ur Specific [place] Urine Protein Urine Glucose (UA) Urine Ketones Urine Blood Urine Nitrite Urine Bilirubin Urine Urobilinogen Ur Leukocyte Esterase Urine WBC (Auto) Urine RBC (Auto) U Hyaline Cast (Auto) U Epithel Cells (Auto) Urine Bacteria (Auto) Urine Comment SARS-CoV-2 (PCR) Influenza Type A (PCR) Influenza Type B (PCR) RSV (RT-PCR) Microbiology 10/30/25 14:12 Urine,Clean Catch Urine Culture - Preliminary Klebsiella variicola PG Care Time/CCT Total # of Minutes Spent Total Time Spent with Patient: Total time spent is greater than 50% in coordination of care (as documented) at patient's floor/unit and/or counseling patient: Coding Level of Care Code 31662 SUB INP/OBS CARE 235MIN Diagnoses Closed fracture of neck of left femur S72.002A Pathological fracture of left hip due to age-related osteoporosis M80.052A UTI (urinary tract infection) N39.0 Benign essential hypertension I10 Type 2 diabetes mellitus without complications E11.9 Meningioma D32.9 Hyperlipidemia E78.5 Dementia F03.90 S/P clamping of cerebral aneurysm Z98.890; Z86.79 H/O partial adrenalectomy E89.6 History of CVA (cerebrovascular accident) Z86.73 Vitamin D3 deficiency E55.9
[2025-11-01 06:25] LABS: Hematocrit (blood only) 36.7 % (37.0-47.0); Hemoglobin 12.5 g/dL (12.0-16.0); Mean Corpuscular Hemoglobin 29.6 pg (25.0-34.0); Mean Corpuscular Volume 87.0 fL (80.0-100.0); Platelet Count 235 K/uL (130-400); RDW Standard Deviation 39.3 fL (36.4-46.3); Red Blood Count 4.22 M/uL (4.20-5.40); White Blood Count 9.64 K/ul (4.8-10.8)
[2025-11-01 06:59] LABS: Anion Gap 9.0 (3-11); Blood Urea Nitrogen 22.0 mg/dl (6-23); Calcium 8.2 mg/dl (8.6-10.3); Carbon Dioxide 24.0 mmol/L (21-32); Chloride 105.0 mmol/L (98-107); Creatinine Clr Calc Pharmacy 44.8 ml/min; Glucose 117.0 mg/dl (70-99(Fasting)); Potassium 4.1 mmol/L (3.5-5.1); Sodium 138.0 mmol/L (136-145)
[2025-11-01] MEDS: ASPIRIN 81 MG ECTAB PO SCH (07:43)
--- NOTE | 2025-11-01 08:52 | Orthopedic Progress Note ---
Date of Service November 01, 2025 Assessment & Plan (1) Closed fracture of neck of left femur: * Continue Current Treatment * S/p left femur cannulated screws * Weight bearing status: TTWB, acknowledging that this will be difficult given her dementia * Daily treatment: Physical Therapy/ Occupational Therapy per protocol * Pain control * Continue to monitor for ABLA * DVT prophylaxis, ok to resume from ortho standpoint * Disposition: TBD * Office/hospital f/u 2 weeks for progress check and staple/suture removal * Remainder care per primary team * * Patient seen and examined, intact to left lower extremity, will mobilize with physical therapy toe-touch to partial weightbearing left leg, follow-up in 2 weeks. Subjective .Active Problems: S/p left hip cannulated screws POD 1 64 y/o female s/p surgical fixation of left femur with cannulated screws. Doing well overall, pain managed and improved function. Denies fever/chills, chest pain/SOB, nausea/vomiting. Otherwise no complaints. Review of Systems All systems reviewed & are unremarkable except as noted in HPI & below. Physical Exam . * General: Alert and oriented, no acute distress * Constitutional: well-developed, well-nourished. * Respiratory: Normal respiratory effort, no distress * Gastrointestinal: No tenderness to palpation, no rigidity or guarding. * Skin: No rash or lesion. * Neurologic: Grossly normal * Musculoskeletal: left hip surgical dressing CDI, not removed for exam. Otherwise no obvious deformity or overlying skin changes. Diffuse TTP proximal thigh and hip region. Otherwise no specific tenderness of distal thigh, lower leg, foot/ankle. AROM hip flexion intact. AROM foot/ankle intact. Sensation intact plantar/dorsal foot. Brisk capillary refill. Results & Data Results & Data Laboratory Results . Diagnostic Findings . Hip X-Ray 10/31/25 00:00 FL hip LT 2-3V CLINICAL HISTORY: LEFT ORIF CANNULATED SCREWS COMPARISON STUDY: CT left hip 10/30/2025 FLUOROSCOPY TIME: 161.2 seconds FLUOROSCOPY IMAGES: 5 EXPOSURE DOSE: 47.5 mGy FINDINGS: Status post placement of 3 cannulated screws fixating the acute left femoral neck fracture. The screws appear intact. IMPRESSION: Fluoroscopic assistance as above. ACT 112: Negative or not required by law. Electronically signed by: Martinez Ascencio M.D. 10/31/2025 3:27 PM PG Care Time/CCT Total # of Minutes Spent Total Time Spent with Patient: Total time spent is greater than 50% in coordination of care (as documented) at patient's floor/unit and/or counseling patient: Coding Level of Care Code 59046 Post Operative Follow-Up Diagnoses Closed fracture of neck of left femur S72.002A
[2025-11-01] MEDS: SULFAMETHOXAZOLE/TRIMETHOPRIM DS 800/160MG TAB PO SCH (09:17)
[2025-11-01] MEDS: CHOLECALCIFEROL 125 MCG (5,000 UNITS) TAB PO SCH (11:21)
--- NOTE | 2025-11-01 13:45 | Operative Report ---
PG Post Operative Report Pre & Post Diagnosis Operation Date: 10/31/25 11:45 Pre-Op Diagnosis: Closed fracture of neck of left femur Post-Op Diagnosis: Closed fracture of neck of left femur I identified the patient and participated in the time-out.: Yes Procedure Operation Date: 10/31/25 11:45 Actual Procedures p Left Hip Open Reduction Internal Fixation with Cannulated Screw(Left) - Neymar Marino MD Surgeon Neymar Marino MD Guide Domestic Tour none Estimated Blood Loss 5 Findings Consistent with Post-Op Diagnosis Specimens None Description of Procedure 1. Closed reduction with percutaneous pinning of left femoral neck fracture (combination of Synthes titanium/stainless steel screws). (84068) Patient was taken the operating room after adequate anesthesia was carefully positioned supine on the [place] fracture table. At this time fluoroscopy was brought in, I then viewed the hip and AP and lateral views, and made close reduction of the femoral neck fracture. Prep and drape was then performed, I then marked the area for incisions for placement of the percutaneous screw fixation. Small incision was made, advanced down to the lateral aspect of the proximal hip, trochanter region. From here I inserted a guidepin, first was in is a lower position, using fluoroscopic and show advanced this up into the femoral head without difficulty. I then added 2 additional pins in the superior location, also under fluoroscopic control and advanced into the femoral head. Once in place I then performed measurements, the outer cortex was drilled followed by insertion of screws. There was a combination of Synthes screw fixation available, this included the newer titanium screws and the stainless steel screws, I utilized the titanium ones for the superior 2 screws as no short thread screws and stainless steel were available for the measurements obtained for length. The inferior most screw was stainless steel as there were no titanium screws of the right length or screw thread length. All screws were inserted without issue and tightened down with excellent purchase. Final images were obtained, the operative site was closed using combination of 2-0 Vicryl sutures and alex, sterile dressing was applied. Patient was taken recovery room in satisfactory condition. I attest to the content of the Intraoperative Record and any orders documented therein. Any exceptions are noted below.
--- NOTE | 2025-11-01 16:48 | Hospitalist Progress Note ---
Date of Service November 01, 2025 Assessment & Plan (1) Pathological fracture of left hip due to age-related osteoporosis: (2) UTI (urinary tract infection): (3) Benign essential hypertension: (4) Type 2 diabetes mellitus without complications: (5) Dementia: (6) Vitamin D3 deficiency: Plan 64yo female with history of intracerebral aneurysm s/p clipping x 2 ([facility], date uncertain), dementia, meningioma, prior right basal ganglia hemorrhagic stroke May 2023, 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 x-rays and CT confirmed left hip fracture. Due to the nasal abrasion seen on exam and the uncertain details of the fall elected to get a CT head and CT cervical spine - both negative for fracture or ICH. #left hip pathological fracture due to age-related osteoporosis - -appreciate orthopedic consult by [facility] -s/p ORIF of L hip fracture by way of screws - discontinue [place] and discontinue IV fluids - PT and OT -DVT proph - asa 81mg BID 6 weeks -follow-up with orthopedics #uncontrolled HTN - blood pressure remains very high this morning no signs or symptoms of uncontrolled pain - increase hydralazine to 75 mg 3 times daily and continue propranolol # Klebsiella UTI Antibiotic regimen switched from ertapenem to Bactrim for 5 days. - History of tolerating Bactrim noted - Monitor chemistry panel for hyperkalemia # Vitamin D deficiency Started on daily 125 mcg vitamin D during hospital stay. - Transition to weekly 50,000 units for 6-8 weeks post-discharge, then ongoing supplementation #dementia -advanced by history -currently in locked dementia unit at [facility]; her riknrp-al-ogg states that shortly after she was admitted to [facility] (personal care portion?) she escaped the building and shortly after that was placed in the dementia unit -at risk of hospital delirium -cont seroquel HS - chronic med for her #T2DM - -Hba1c 6% -check BSGs ac/hs -novolog SSI - 1 high level today and may be some steroid effect, on the balance at goal #history of meningioma - -has seen neurosurgery & neurology in [place] along with Dr Obrien with [facility] in the past -last documented MRI brain: -due to the fall she had and the abrasion on her nose I elected to get CT head and CT c-spine -CT head without ICH; meningiomas and aneurysm clips seen and stable -Cervical spine CT w/o fracture #history of intracerebral aneurysm s/p clipping - -[facility] - year of surgery uncertain, other details uncertain -clips stable on CT head #history of right basal ganglia hemorrhagic stroke - 2022 - -no ICH on CT head #JORDAN - -not on CPAP or BIPAP by report #history of seizure disorder - -dating back to 2017? no recent seizures reported -I'm assuming her lamictal is for seizure prophylaxis #hyperlipidemia - -cont statin #DVT proph - twice daily aspirin pt's power of civil litigation attorney and [id number] - Joslyn Reaves - updated at bedside last on 10/30 medically ready for discharge to rehab setting Admission and Anticipated Discharge Date Admission Date: October 30, 2025 Subjective admitted for left hip fracture, repaired by orthopedics. Resting and napping, woke her up. Reports headache but no hip pain. Lying on left side. No shortness of breath or chest pain. Eating well, consumed 100% of lunch tray. Hypertension noted with BP of 190/68 this morning. Afebrile, on room air. Labs show vitamin D level <7 and pansensitive Klebsiella UTI. Doing well postoperatively. Referrals made to [facility] facilities for rehab. Follow-up with orthopedics scheduled. Physical Exam 2 Physical Exam: General Appearance: Normal. aroused easily from a nap Vital signs: Reviewed past 24h vital signs in EMR, unremarkable. HEENT: Within normal limits. Respiratory: Clear lungs bilaterally, no rhonchi, rales, or wheezes. Cardiovascular: Regular heart rate, no murmurs, rubs, or gallops. Gastrointestinal: Abdomen soft NT/ND, normal active bowel tones. Back, Musculoskeletal: Left leg warm, well perfused, no edema. Extremities: warm and well perfused, no LE edema. Skin: Warm, dry, no rashes. Neurological: Arouses easily to voice, awake, alert, pleasantly confused. Psychiatric: Normal interaction no agitation. Results & Data Results & Data Vital Signs (Past 12 Hours) Vital Signs Temp Pulse Pulse Resp BP BP Pulse Ox 11/01/25 15:59 36.7 C 67 18 152/69 H 94 11/01/25 14:40 62 11/01/25 14:00 11/01/25 11:30 36.7 C 63 18 144/63 H 92 11/01/25 08:45 66 11/01/25 08:00 36.6 C 63 16 190/68 H 92 11/01/25 06:00 Pulse Ox O2 Del Method O2 Del Method O2 Flow Rate 11/01/25 15:59 Room Air 11/01/25 14:40 11/01/25 14:00 93 Room Air 11/01/25 11:30 Room Air 11/01/25 08:45 11/01/25 08:00 Room Air 0 11/01/25 06:00 93 Room Air Laboratory Results - Labs: - Vitamin D level: <7 - Microbiology: Klebsiella UTI which is pansensitive white blood count 9 hemoglobin 12.5 which is stable chemistry panel is unremarkable creatinine is 1 PG Care Time/CCT Total # of Minutes Spent Total Time Spent with Patient: Total time spent is greater than 50% in coordination of care (as documented) at patient's floor/unit and/or counseling patient: Coding Level of Care Code 06981 SUB INP/OBS CARE 2/35MIN Diagnoses Pathological fracture of left hip due to age-related osteoporosis M80.052A UTI (urinary tract infection) N39.0 Benign essential hypertension I10 Type 2 diabetes mellitus without complications E11.9 Dementia F03.90 Vitamin D3 deficiency E55.9
--- NOTE | 2025-11-02 10:27 | Orthopedic Progress Note ---
Date of Service November 02, 2025 Assessment & Plan (1) Closed fracture of neck of left femur: * Continue Current Treatment * S/p left femur cannulated screws * Weight bearing status: TTWB, acknowledging that this will be difficult given her dementia * Daily treatment: Physical Therapy/ Occupational Therapy per protocol * Pain control * Continue to monitor for ABLA * DVT prophylaxis, ok to resume from ortho standpoint * Disposition: TBD * Office/hospital f/u 2 weeks for progress check and staple/suture removal * Remainder care per primary team Subjective Active Problems: S/p left hip cannulated screws POD 2 64 y/o female s/p surgical fixation of left femur with cannulated screws. Doing well overall, pain managed and improved function. Denies fever/chills, chest pain/SOB, nausea/vomiting. Otherwise no complaints. Review of Systems All systems reviewed & are unremarkable except as noted in HPI & below. Physical Exam * Musculoskeletal: left hip surgical dressing CDI, not removed for exam. Otherwise no obvious deformity or overlying skin changes. Diffuse TTP proximal thigh and hip region. Otherwise no specific tenderness of distal thigh, lower leg, foot/ankle. AROM hip flexion intact. AROM foot/ankle intact. Sensation intact plantar/dorsal foot. Brisk capillary refill. Results & Data Results & Data Laboratory Results . Diagnostic Findings . PG Care Time/CCT Total # of Minutes Spent Total Time Spent with Patient: Total time spent is greater than 50% in coordination of care (as documented) at patient's floor/unit and/or counseling patient: Coding Level of Care Code 83903 Post Operative Follow-Up Diagnoses Closed fracture of neck of left femur S72.002A
--- NOTE | 2025-11-02 14:19 | Hospitalist Progress Note ---
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 x-rays and CT confirmed left hip fracture. Due to the nasal abrasion seen on exam and the uncertain details of the fall elected to get a CT head and CT cervical spine - both negative for fracture or ICH. #left hip pathological fracture due to age-related osteoporosis - -appreciate orthopedic consult by [facility] Ortho -s/p ORIF of L hip fracture by way of screws - discontinue [place] and discontinue IV fluids - PT and OT -DVT proph - asa 81mg BID 6 weeks -follow-up with orthopedics #uncontrolled HTN - blood pressure remains above goal - increase hydralazine to 100 mg 3 times daily and continue propranolol - she has unknown reactions listed for multiple DAMI inhibitors, if increasing hydralazine ineffective would add amlodipine # Klebsiella UTI Antibiotic regimen switched from ertapenem to Bactrim for 5 days. - History of tolerating Bactrim noted - Monitor chemistry panel for hyperkalemia. a.m. BMP # Vitamin D deficiency Started on daily 125 mcg vitamin D during hospital stay. - Transition to weekly 50,000 units for 6-8 weeks post-discharge, then ongoing supplementation #dementia -advanced by history -currently in dementia unit at [facility] -at risk of hospital delirium, avoid sedating/deliriogenic medications -cont seroquel HS - chronic med for her #T2DM - -Hba1c 6% -check BSGs ac/hs -novolog SSI - blood glucose is at goal past 24 hours #history of meningioma - -has seen neurosurgery & neurology in [place] along with Dr Obrien with [facility] Neurology in the past -last documented MRI brain: -due to the fall she had and the abrasion on her nose I elected to get CT head and CT c-spine -CT head without ICH; meningiomas and aneurysm clips seen and stable -Cervical spine CT w/o fracture #history of intracerebral aneurysm s/p clipping - -[facility] - year of surgery uncertain, other details uncertain -clips stable on CT head #history of right basal ganglia hemorrhagic stroke - 2022 - -no ICH on CT head #JORDAN - -not on CPAP or BIPAP, caution with opioids and other sedating medications #history of seizure disorder - -dating back to 2017? no recent seizures reported -I'm assuming her lamictal is for seizure prophylaxis #hyperlipidemia - -cont statin #DVT proph - twice daily aspirin pt's power of district attorney and [id number] - Joslyn Reaves - updated at bedside last on 10/30 medically ready for discharge to rehab setting Admission and Anticipated Discharge Date Admission Date: October 30, 2025 Subjective Awake alert sitting up in the chair pleasantly confused, she reports that her left hip is sore but pain is improving no shortness of breath or chest pain. Has been eating very well Physical Exam 2 Physical Exam: General Appearance: sitting up in the chair by the window Vital signs: Reviewed past 24h vital signs in EMR, unremarkable. HEENT: Within normal limits. Respiratory: Clear lungs bilaterally, no rhonchi, rales, or wheezes. Cardiovascular: Regular heart rate, no murmurs, rubs, or gallops. Gastrointestinal: Abdomen soft NT/ND, normal active bowel tones. Back, Musculoskeletal: left hip incision is small, covered by surgical bandage no strikethrough, no surrounding erythema or swelling Extremities: warm and well perfused, no LE edema. Skin: Warm, dry, no rashes. Neurological: awake and alert pleasantly confused Psychiatric: Normal interaction no agitation. Results & Data Results & Data Vital Signs (Past 12 Hours) Vital Signs Temp Pulse Resp BP Pulse Ox O2 Del Method 11/02/25 11:39 36.9 C 64 197/82 H 94 Room Air 11/02/25 09:00 Room Air 11/02/25 08:02 36.8 C 71 186/76 H 93 Room Air 11/02/25 02:59 36.6 C 66 18 197/83 H 92 Room Air PG Care Time/CCT Total # of Minutes Spent Total Time Spent with Patient: Total time spent is greater than 50% in coordination of care (as documented) at patient's floor/unit and/or counseling patient: Coding Level of Care Code 92272 SUB INP/OBS CARE Diagnoses Pathological fracture of left hip due to age-related osteoporosis M80.052A UTI (urinary tract infection) N39.0 Benign essential hypertension I10 Type 2 diabetes mellitus without complications E11.9 Dementia F03.90 Vitamin D3 deficiency E55.9
--- NOTE | 2025-11-03 08:28 | Orthopedic Progress Note ---
Date of Service November 03, 2025 Assessment & Plan (1) Closed fracture of neck of left femur: * Continue Current Treatment * S/p left femur cannulated screws * Weight bearing status: TTWB, acknowledging that this will be difficult given her dementia * Daily treatment: Physical Therapy/ Occupational Therapy per protocol * Pain control * Continue to monitor for ABLA * DVT prophylaxis, ok to resume from ortho standpoint * Disposition: TBD * Office/hospital f/u 2 weeks for progress check and staple/suture removal * Remainder care per primary team Subjective Active Problems: S/p left hip cannulated screws POD 3 64 y/o female s/p surgical fixation of left femur with cannulated screws. Doing well overall, pain managed and improved function. Denies fever/chills, chest pain/SOB, nausea/vomiting. Otherwise no complaints. Review of Systems All systems reviewed & are unremarkable except as noted in HPI & below. Physical Exam * Musculoskeletal: left hip surgical dressing CDI, not removed for exam. Otherwise no obvious deformity or overlying skin changes. Diffuse TTP proximal thigh and hip region. Otherwise no specific tenderness of distal thigh, lower leg, foot/ankle. AROM hip flexion intact. AROM foot/ankle intact. Sensation intact plantar/dorsal foot. Brisk capillary refill. Results & Data Results & Data Laboratory Results . Diagnostic Findings . PG Care Time/CCT Total # of Minutes Spent Total Time Spent with Patient: Total time spent is greater than 50% in coordination of care (as documented) at patient's floor/unit and/or counseling patient: Coding Level of Care Code 71314 Post Operative Follow-Up Diagnoses Closed fracture of neck of left femur S72.002A
--- NOTE | 2025-11-03 15:47 | Hospitalist Progress Note ---
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 x-rays and CT confirmed left hip fracture. Due to the nasal abrasion seen on exam and the uncertain details of the fall elected to get a CT head and CT cervical spine - both negative for fracture or ICH. #left hip pathological fracture due to age-related osteoporosis - -appreciate orthopedic consult by [facility] Orth[facility] -s/p ORIF of L hip fracture by way of screws - PT and OT, toe-touch weight-bear left lower extremity. will be more difficult to maintain because of her dementia -DVT proph - asa 81mg BID 6 weeks -follow-up with orthopedics #uncontrolled HTN - blood pressure remains above goal - increased hydralazine to 100 mg 3 times daily and continue propranolol - will not tolerate increase in propranolol dose because of bradycardia - she has unknown reactions listed for multiple DAMI inhibitors, added amlodipine 5 mg daily # Klebsiella UTI Antibiotic regimen switched from ertapenem to Bactrim for 5 days. - History of tolerating Bactrim noted - Monitor chemistry panel for hyperkalemia. a.m. BMP # Vitamin D deficiency Started on daily 125 mcg vitamin D during hospital stay. - Transition to weekly 50,000 units for 6-8 weeks post-discharge, then ongoing supplementation #dementia -advanced by history -currently in dementia unit at [facility] -at risk of hospital delirium, avoid sedating/deliriogenic medications -cont seroquel HS - chronic med for her #T2DM - -Hba1c 6% -check BSGs ac/hs -novolog SSI - blood glucose is at goal past 24 hours #history of meningioma - -has seen neurosurgery & neurology in [place] along with Dr Obrien with [facility] Neurology in the past -last documented MRI brain: -due to the fall she had and the abrasion on her nose I elected to get CT head and CT c-spine -CT head without ICH; meningiomas and aneurysm clips seen and stable -Cervical spine CT w/o fracture #history of intracerebral aneurysm s/p clipping - -[facility] - year of surgery uncertain, other details uncertain -clips stable on CT head #history of right basal ganglia hemorrhagic stroke - 2022 - -no ICH on CT head #JORDAN - -not on CPAP or BIPAP, caution with opioids and other sedating medications #history of seizure disorder - -dating back to 2017? no recent seizures reported -I'm assuming her lamictal is for seizure prophylaxis #hyperlipidemia - -cont statin #DVT proph - twice daily aspirin medically ready for discharge to rehab setting, Auth pending Admission and Anticipated Discharge Date Admission Date: October 30, 2025 Subjective The patient remains hypertensive with systolic BP in the 180s overnight despite increased hydralazine since admission. Her HR is relatively low, limiting propranolol increase. Blood glucose levels are at goal, all <150. She has been sleepy this morning, currently napping but arouses easily to voice. She complains of frequent headaches but refuses Tylenol. She has left hip pain, severe when standing but comfortable at rest. She remains pleasantly confused. Physical Exam 2 Physical Exam: General Appearance: Normal. Vital signs: Reviewed past 24h vital signs in EMR, unremarkable. HEENT: Within normal limits. Respiratory: Lungs clear bilaterally. Normal respiratory effort. Cardiovascular: Regular rate and rhythm, no murmur. Gastrointestinal: Abdomen soft, nontender, nondistended. Normal bowel tones. Extremities: warm and well perfused, no LE edema. Skin: Skin warm, dry, no rashes. Neurological: Sleeping but arouses easily to voice. Pleasantly confused. Psychiatric: Normal. Results & Data Results & Data Vital Signs (Past 12 Hours) Vital Signs Temp Pulse Pulse Resp BP BP Pulse Ox 11/03/25 12:28 36.4 C L 53 L 16 174/74 H 97 11/03/25 08:43 36.9 C 71 18 189/76 H 93 11/03/25 07:56 36.6 C 79 18 188/76 H 95 11/03/25 07:42 O2 Del Method 11/03/25 12:28 Room Air 11/03/25 08:43 Room Air 11/03/25 07:56 Room Air 11/03/25 07:42 Room Air Laboratory Results - Laboratory Studies: - Blood glucose levels: <150 PG Care Time/CCT Total # of Minutes Spent Total Time Spent with Patient: Total time spent is greater than 50% in coordination of care (as documented) at patient's floor/unit and/or counseling patient: Coding Level of Care Code 97384 SUB INP/OBS CARE 2/35MIN Diagnoses Pathological fracture of left hip due to age-related osteoporosis M80.052A UTI (urinary tract infection) N39.0 Benign essential hypertension I10 Type 2 diabetes mellitus without complications E11.9 Dementia F03.90 Vitamin D3 deficiency E55.9
--- NOTE | 2025-11-04 07:20 | Electrocardiogram Report ---
Test Reason : Blood Pressure : */* mmHG Vent. Rate : 59 BPM Atrial Rate : 59 BPM P-R Int : 146 ms QRS Dur : 90 ms QT Int : 454 ms P-R-T Axes : 77 18 44 degrees QTcB Int : 449 ms Sinus bradycardia Minimal voltage criteria for LVH, may be normal variant ( [place] product ) Borderline ECG No previous ECGs available Confirmed by Jono Velasco ([id number]) on 11/04/2025 7:20:21 AM Referred By: REFERRED SELF Confirmed By: Jono Velasco
--- NOTE | 2025-11-04 17:56 | Hospitalist Progress Note ---
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 x-rays and CT confirmed left hip fracture. Due to the nasal abrasion seen on exam and the uncertain details of the fall elected to get a CT head and CT cervical spine - both negative for fracture or ICH. At this point she is medically ready for discharge and awaiting placement for SNF rehab #left hip pathological fracture due to age-related osteoporosis - -appreciate orthopedic consult by [facility] -s/p ORIF of L hip fracture by way of screws - PT and OT, toe-touch weight-bear left lower extremity. will be more difficult to maintain because of her dementia -DVT proph - asa 81mg BID 6 weeks -follow-up with orthopedics #uncontrolled HTN - blood pressure remains above goal - increased hydralazine to 100 mg 3 times daily and continue propranolol - will not tolerate increase in propranolol dose because of bradycardia - she has unknown reactions listed for multiple DAMI inhibitors, added amlodipine 5 mg daily and BP improving # Klebsiella UTI Antibiotic regimen switched from ertapenem to Bactrim for 5 days. Last dose tonight # Vitamin D deficiency Started on daily 125 mcg vitamin D during hospital stay. - Transition to weekly 50,000 units for 6-8 weeks post-discharge, then ongoing supplementation #dementia -advanced by history -currently in dementia unit at [facility] -at risk of hospital delirium, avoid sedating/deliriogenic medications -cont seroquel HS - chronic med for her #T2DM - -Hba1c 6% -check BSGs ac/hs -novolog SSI - blood glucose is at goal past 24 hours #history of meningioma - -has seen neurosurgery & neurology in [place] along with Dr Obrien with [facility] in the past -last documented MRI brain: -due to the fall she had and the abrasion on her nose I elected to get CT head and CT c-spine -CT head without ICH; meningiomas and aneurysm clips seen and stable -Cervical spine CT w/o fracture #history of intracerebral aneurysm s/p clipping - -[facility] - year of surgery uncertain, other details uncertain -clips stable on CT head #history of right basal ganglia hemorrhagic stroke - 2022 - -no ICH on CT head #JORDAN - -not on CPAP or BIPAP, caution with opioids and other sedating medications #history of seizure disorder - -dating back to 2017? no recent seizures reported -I'm assuming her lamictal is for seizure prophylaxis #hyperlipidemia - -cont statin #DVT proph - twice daily aspirin medically ready for discharge to rehab setting, Auth pending Admission and Anticipated Discharge Date Admission Date: October 30, 2025 Subjective L hip sore, ok at rest painful when standing Physical Exam 2 Physical Exam: General Appearance: watching TV Vital signs: Reviewed past 24h vital signs in EMR, unremarkable. HEENT: Within normal limits. Respiratory: Lungs clear bilaterally. Normal respiratory effort. Cardiovascular: Regular rate and rhythm, no murmur. Gastrointestinal: Abdomen soft, nontender, nondistended. Normal bowel tones. Extremities: warm and well perfused, no LE edema. L hip incision healing well Skin: Skin warm, dry, no rashes. Neurological: Sleeping but arouses easily to voice. Pleasantly confused. Psychiatric: Normal. Results & Data Results & Data Vital Signs (Past 12 Hours) Vital Signs Temp Pulse Resp BP Pulse Ox O2 Del Method 11/04/25 15:43 36.5 C 55 L 18 135/66 94 Room Air 11/04/25 07:41 36.6 C 69 18 162/70 H 97 Room Air PG Care Time/CCT Total # of Minutes Spent Total Time Spent with Patient: Total time spent is greater than 50% in coordination of care (as documented) at patient's floor/unit and/or counseling patient: Coding Level of Care Code 42909 SUB INP/OBS CARE 2/35MIN Diagnoses Pathological fracture of left hip due to age-related osteoporosis M80.052A UTI (urinary tract infection) N39.0 Benign essential hypertension I10 Type 2 diabetes mellitus without complications E11.9 Dementia F03.90 Vitamin D3 deficiency E55.9
--- NOTE | 2025-11-05 15:38 | Hospitalist Progress Note ---
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 x-rays and CT confirmed left hip fracture. Due to the nasal abrasion seen on exam and the uncertain details of the fall elected to get a CT head and CT cervical spine - both negative for fracture or ICH. she underwent ORIF of her left hip and has done well following that, ready for placement in correction facility for rehab. #left hip pathological fracture due to age-related osteoporosis - -appreciate orthopedic consult by [facility] -s/p ORIF of L hip fracture by way of screws - PT and OT, toe-touch weight-bear left lower extremity. will be more difficult to maintain because of her dementia -DVT proph - asa 81mg BID 6 weeks -follow-up with orthopedics #uncontrolled HTN - blood pressure Much improved today after the addition of amlodipine 5 mgwe will continue this dose - continue hydralazine which was increased this admission, propranolol, amlodipine 5 mg daily # Klebsiella UTI treated with 5 days of combined ertapenem/Bactrim, completed treatment while in the hospital # Vitamin D deficiency Started on daily 125 mcg vitamin D during hospital stay. - Transition to weekly 50,000 units for 6-8 weeks post-discharge, then ongoing supplementation #dementia -advanced by history -currently in dementia unit at [facility] -at risk of hospital delirium, avoid sedating/deliriogenic medications -cont seroquel HS - chronic med for her #T2DM - -Hba1c 6% -check BSGs ac/hs -novolog SSI - blood glucose is at goal past 24 hours #history of meningioma - -has seen neurosurgery & neurology in [place] along with Dr Obrien with [facility] in the past -last documented MRI brain: -due to the fall she had and the abrasion on her nose I elected to get CT head and CT c-spine -CT head without ICH; meningiomas and aneurysm clips seen and stable -Cervical spine CT w/o fracture #history of intracerebral aneurysm s/p clipping - -[facility] - year of surgery uncertain, other details uncertain -clips stable on CT head #history of right basal ganglia hemorrhagic stroke - 2022 - -no ICH on CT head #JORDAN - -not on CPAP or BIPAP, caution with opioids and other sedating medications #history of seizure disorder - - continue Lamictal, no recent seizures reported #hyperlipidemia - -cont statin #DVT proph - twice daily aspirin awaiting SNF authorization from insurance Admission and Anticipated Discharge Date Admission Date: October 30, 2025 Perla Gurrola continues to do well she has left hip pain that is aggravated by standing up and getting around. She has no shortness of breath or chest pain no abdominal pain nausea or vomiting she remains constipated, though she has had a bowel movement after surgery Physical Exam 2 Physical Exam: General Appearance: sitting up in the chair by the window Vital signs: Reviewed past 24h vital signs in EMR, unremarkable. HEENT: Within normal limits. Respiratory: Lungs clear bilaterally. Normal respiratory effort. Cardiovascular: Regular rate and rhythm, no murmur. Gastrointestinal: Abdomen soft, nontender, nondistended. Normal bowel tones. Extremities: warm and well perfused, no LE edema. L hip incision dressed, no strikethrough Skin: Skin warm, dry, no rashes. Neurological: awake and alert oriented to hospital and basic situation, forgetful/confused Psychiatric: Normal. Results & Data Results & Data Vital Signs (Past 12 Hours) Vital Signs Temp Pulse Resp BP BP Pulse Ox O2 Del Method 11/05/25 15:14 36.9 C 57 L 16 132/56 L 95 Room Air 11/05/25 07:32 36.7 C 77 20 143/74 H 95 Room Air PG Care Time/CCT Total # of Minutes Spent Total Time Spent with Patient: Total time spent is greater than 50% in coordination of care (as documented) at patient's floor/unit and/or counseling patient: Coding Level of Care Code 00387 SUB INP/OBS CARE 2/35MIN Diagnoses Pathological fracture of left hip due to age-related osteoporosis M80.052A UTI (urinary tract infection) N39.0 Benign essential hypertension I10 Type 2 diabetes mellitus without complications E11.9 Dementia F03.90 Vitamin D3 deficiency E55.9
[2025-11-05] MEDS: KETOROLAC TROMETHAMINE 15 MG/ML VIAL IV ONE (19:15)
[2025-11-06] MEDS: MAGNESIUM HYDROXIDE SUSP 30 ML UDC PO PRN (12:26)
--- NOTE | 2025-11-06 16:42 | Hospitalist Progress Note ---
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 x-rays and CT confirmed left hip fracture. Due to the nasal abrasion seen on exam and the uncertain details of the fall elected to get a CT head and CT cervical spine - both negative for fracture or ICH. she underwent ORIF of her left hip and has done well following that, [facility]. #left hip pathological fracture due to age-related osteoporosis - -appreciate orthopedic consult by [facility] Ortho -s/p ORIF of L hip fracture by way of screws - PT and OT, toe-touch weight-bear left lower extremity. will be more difficult to maintain because of her dementia -DVT proph - asa 81mg BID 6 weeks -follow-up with orthopedics no changes to plan today awaiting rehab placement, discussed with care coordination #uncontrolled HTN - blood pressure Much improved today after the addition of amlodipine 5 mgwe will continue this dose - continue hydralazine which was increased this admission, propranolol, amlodipine 5 mg daily # Klebsiella UTI treated with 5 days of combined ertapenem/Bactrim, completed treatment while in the hospital # Vitamin D deficiency Started on daily 125 mcg vitamin D during hospital stay. - Transition to weekly 50,000 units for 6-8 weeks post-discharge, then ongoing supplementation #dementia -advanced by history -currently in dementia unit at [facility] -at risk of hospital delirium, avoid sedating/deliriogenic medications -cont seroquel HS - chronic med for her #T2DM - -Hba1c 6% -check BSGs ac/hs -novolog SSI - blood glucose is at goal past 24 hours #history of meningioma - -has seen neurosurgery & neurology in [place] along with Dr Obrien with [facility] Neurology in the past -last documented MRI brain: -due to the fall she had and the abrasion on her nose I elected to get CT head and CT c-spine -CT head without ICH; meningiomas and aneurysm clips seen and stable -Cervical spine CT w/o fracture #history of intracerebral aneurysm s/p clipping - -[facility] - year of surgery uncertain, other details uncertain -clips stable on CT head #history of right basal ganglia hemorrhagic stroke - 2022 - -no ICH on CT head #JORDAN - -not on CPAP or BIPAP, caution with opioids and other sedating medications #history of seizure disorder - - continue Lamictal, no recent seizures reported #hyperlipidemia - -cont statin #DVT proph - twice daily aspirin awaiting SNF authorization from insurance Admission and Anticipated Discharge Date Admission Date: October 30, 2025 Subjective Izabela is doing fine she still not have a bowel movement yet. I ordered a Dulcolax suppository today Physical Exam 2 Physical Exam: General Appearance: sitting up on the edge of the bed with the OT Vital signs: Reviewed past 24h vital signs in EMR, unremarkable. physical exam unchanged 11/06 HEENT: Within normal limits. Respiratory: Lungs clear bilaterally. Normal respiratory effort. Cardiovascular: Regular rate and rhythm, no murmur. Gastrointestinal: Abdomen soft, nontender, nondistended. Normal bowel tones. Extremities: warm and well perfused, no LE edema. L hip incision dressed, no strikethrough Skin: Skin warm, dry, no rashes. Neurological: awake and alert oriented to hospital and basic situation, forgetful/confused Psychiatric: Normal. Results & Data Results & Data Vital Signs (Past 12 Hours) Vital Signs Temp Pulse Pulse Resp BP Pulse Ox O2 Del Method 11/06/25 15:10 36.8 C 64 16 158/72 H 95 Room Air 11/06/25 07:26 36.5 C 83 19 152/71 H 96 Room Air PG Care Time/CCT Total # of Minutes Spent Total Time Spent with Patient: Total time spent is greater than 50% in coordination of care (as documented) at patient's floor/unit and/or counseling patient: Coding Level of Care Code 36206 SUB INP/OBS CARE 12/17MIN Diagnoses Pathological fracture of left hip due to age-related osteoporosis M80.052A UTI (urinary tract infection) N39.0 Benign essential hypertension I10 Type 2 diabetes mellitus without complications E11.9 Dementia F03.90 Vitamin D3 deficiency E55.9
[2025-11-06] MEDS: MELATONIN 3 MG TAB PO PRN (21:58)
[2025-11-06 22:24] VITALS: TEMP 97.7
[2025-11-07 07:08] VITALS: BP 160/76; RESP 19; O2SAT 93
--- NOTE | 2025-11-07 12:11 | Discharge Summary ---
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 x-rays and CT confirmed left hip fracture. Due to the nasal abrasion seen on exam and the uncertain details of the fall elected to get a CT head and CT cervical spine - both negative for fracture or ICH. she underwent ORIF of her left hip and has done well following that, ready for placement in half-way facility for rehab. #left hip pathological fracture due to age-related osteoporosis - -appreciate orthopedic consult by [facility] -s/p ORIF of L hip fracture with cannulated screw 10/[address] Marino - PT and OT, toe-touch weight-bear left lower extremity. will be more difficult to maintain because of her dementia -DVT proph - asa 81mg BID 6 weeks - EOT 12/12/25 -follow-up with orthopedics in 2 weeks -discharged to SNF for rehab #uncontrolled HTN - blood pressure - continue hydralazine which was increased this admission, propranolol usual dose, amlodipine 5 mg daily which was added this admission # Klebsiella UTI treated with 5 days of combined ertapenem/Bactrim, completed treatment while in the hospital # Vitamin D deficiency Started on daily 125 mcg vitamin D during hospital stay. - Transition to weekly 50,000 units for 6-8 weeks post-discharge, then ongoing supplementation. Follow up with PCP for Vitamin D deficiency and osteoporosis #dementia -advanced by history -at risk of hospital delirium, avoid sedating/deliriogenic medications -cont seroquel HS - chronic med for her #T2DM - -Hba1c 6% -check BSGs ac/hs -aspart premeal -may transition to diet control or add OHA as appropriate #history of meningioma - -has seen neurosurgery & neurology in [place] along with Dr Obrien with [facility] Neu[facility] in the past -last documented MRI brain: -due to the fall she had and the abrasion on her nose I elected to get CT head and CT c-spine -CT head without ICH; meningiomas and aneurysm clips seen and stable -Cervical spine CT w/o fracture #history of intracerebral aneurysm s/p clipping - -[facility] - year of surgery uncertain, other details uncertain -clips stable on CT head #history of right basal ganglia hemorrhagic stroke - 2022 - -no ICH on CT head #JORDAN - -not on CPAP or BIPAP, caution with opioids and other sedating medications #history of seizure disorder - - continue Lamictal, no recent seizures reported #hyperlipidemia - -cont statin #DVT proph - twice daily aspirin for 6 weeks postop Notes For Next Care Provider Medication Changes From Visit New: oxycodone prn amlodipine 5 mg vitamin D replacement increased hydralazine Admission HPI Per Admitting Provider 64yo female with history of intracerebral aneurysm s/p clipping x 2 ([facility], date uncertain), dementia, 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 She currently resides in the locked dementia unit at [facility]. Throughout this weekend she had ongoing pain treated with tramadol. At some point on Thursday she had a left hip x-ray which ultimately showed evidence of a left hip fracture and therefore she was brought to [facility] for evaluation. Upon arrival to [facility] her x-rays indeed show evidence of a left hip fracture. During my assessment the patient was resting comfortably in bed. Her [id number] Joslyn was present at bedside who provided nearly all of the history. Patient herself only complained of pain in the left groin/left hip region. Denied headache, arm pain b/l, right leg pain, chest pain, back pain, or abdominal pain. Due to her dementia she was unable to provide any meaningful history. Multiple times she said she "fell at home." Discharge Exam General Appearance: sitting in chair Vital signs: Reviewed past 24h vital signs in EMR, unremarkable. HEENT: Within normal limits. Respiratory: Lungs clear bilaterally. Normal respiratory effort. Cardiovascular: Regular rate and rhythm, no murmur. Gastrointestinal: Abdomen soft, nontender, nondistended. Normal bowel tones. Extremities: warm and well perfused, no LE edema. L hip incision open to air, two small surgical wounds stapled, healing well no erythema or drainage well opposed Skin: Skin warm, dry, no rashes. Neurological: awake and alert oriented to hospital and basic situation, forgetful/confused but more with it this morning than I've seen her Psychiatric: Normal. Discharge Plan Discharge Items Patient Disposition: Transfer Usp Fac Reason For Visit: LEFT HIP FRACTURE Discharge Diagnosis: Left hip fracture Condition on Discharge: Good Activity: Per Instructions section Weightbearing: Left toe touch Non-emergency contact: Surgeon Call non-emergency contact if: your symptoms worsen, your temperature is above 101.5, your wound has increased redness and your wound has increased drainage Follow-up/Referrals: Neymar Marino MD [Surgeon] - Michel Vasquez [Primary Care Provider] - Diet: Carb Consistent or DM2 Addtl Attending Provider Instructions: General Orthopedic Discharge Instructions Activity: TTWB left leg Diet: You may resume previous diet. Medications: 1. Narcotic You will likely be sent home from the hospital with a prescription for the narcotic pain medication. Take it as needed. Side effects most commonly include nausea and constipation 2. Resume previous home medications unless otherwise instructed Dressing Care: If there is a soft dressing in place then leave the dressing intact for 5 days. On the 5th you may remove the dressing and leave the stitches open to air or cover them with band-aids. Keep the incision clean and dry If there is a hard splint then leave it in place until your follow-up visit in 2 weeks Showering: If you have a soft dressing you may shower right after the surgery but do not get the dressing wet. After the dressing is removed on the 5th day then you can get the stitches wet in the shower, but do not soak or scrub them. Let the soapy shower water run over the stitches and pat them dry. If you have a hard splint, cover it in a plastic bag and keep it dry. Do not remove it until the follow up appointment. Things To Watch For: 1. Drainage from the incision site that occurs more than one week after your surgery. 2. Increased redness at the incision site. 3. Fever above 102 degrees Fahrenheit. 4. Unusual chest pain or shortness of breath. 5. Call [facility] at with any of the above problems. Follow-Up Visit: Please make arrangements to follow-up with Dr. Marino team approximately 2 weeks after your day of surgery for progress check and staple/suture removal. If you have any questions call Addtl Catalog Library Assistant Provider Instructions: L hip fracture repair 10/31 PT and OT evaluate and treat TTWB left leg DVT prophylaxis with aspirin 81 mg po bid through Dec 12, 2025 (total 6 weeks) Schedule follow up with Dr. Marino in 2 weeks for progress check and staple removal, ortho Bowel care per protocol Treat severe vitamin D deficiency - follow up with primary care Diabetic diet Blood glucose checks tid AC Insulin Aspart premeal: --Goal BSG Range: Low 120_mg/dL, High 160_mg/dL --Correction Factor: 40_mg/dL/unit --Carbohydrate ratio = __ g/unit --BSGs AC if eating, q6h if npo It was a pleasure taking care of you in the hospital, Cristela Munguia MD Pending Studies at Discharge: No Stand-Alone Forms: [facility] Skilled Items Patient informed of condition?: Yes DNR: Yes Discharge Level of Care: Skilled Communicable Disease: No Discharge Prognosis: Improving Lines: None Urinary Catheter: No Medications and DC Order Prescriptions: New cholecalciferol (vitamin D3) 1,250 mcg (50,000 unit) capsule 50,000 unit PO .weekly 42 Days Qty: 4 0RF Rx Instructions: treat for 6 weeks for vitamin D deficiency then change to daily maintenance dosing oxycodone 5 mg Tablet 5 mg PO Q6H PRN (Reason: pain) Qty: 14 0RF insulin aspart U-100 [Novolog U-100 Insulin aspart] 100 unit/mL Solution See Rx Instructions .ROUTE .COMPLEX Qty: 0 0RF Rx Instructions: tid SQ 30 minutes prior to meals --Goal BSG Range: Low 120_mg/dL, High 160_mg/dL --Correction Factor: 40_mg/dL/unit --Carbohydrate ratio = __ g/unit --BSGs qAC if eating, q6h if npo If pt is NPO, do NOT hold correction factor insulin without an order aspirin 81 mg Tablet,Delayed Release (Dr/Ec) 81 mg PO BID Qty: 0 0RF amlodipine 5 mg Tablet 5 mg PO QAM Qty: 0 0RF acetaminophen [Tylenol Extra Strength] 500 mg Tablet 1,000 mg PO TID Qty: 0 0RF hydralazine 50 mg Tablet 100 mg PO Q8 Qty: 0 0RF Continued atorvastatin 20 mg tablet 20 mg PO DAILY lamotrigine [Lamictal] 150 mg tablet 200 mg PO DAILY propranolol 10 mg tablet 20 mg PO BID bisacodyl [Dulcolax (bisacodyl)] 10 mg suppository 10 mg TX DAILY PRN (Reason: Constipation) sodium phosphates 19-7 gram/118 mL enema 118 ml TX DAILY PRN (Reason: Constipation) escitalopram oxalate 5 mg tablet 10 mg PO DAILY magnesium hydroxide [Milk of Magnesia] 400 mg/5 mL suspension 30 ml PO DAILY PRN (Reason: Constipation) potassium chloride 20 mEq tablet extended release 40 meq PO BID sennosides [Senokot] 8.6 mg tablet 8.6 mg PO DAILY quetiapine [Seroquel] 25 mg Tablet 25 mg PO HS ipratropium-albuterol [DuoNeb] 0.5 mg-3 mg(2.5 mg base)/3 mL Solution For Nebulization 3 ml INHALATION Q6H PRN (Reason: cough/wheezing) dextrose [Insta-Glucose] 40 % Gel 1 ea PO UD PRN (Reason: Hypoglycemia) loperamide [Anti-Diarrheal (loperamide)] 2 mg Tablet 1 mg PO Q12H PRN (Reason: Diarrhea) Rx Instructions: administer after each loose stool until symptoms controlled; do not exceed 8 mg per 24 hrs glucagon HCl [Glucagon (HCl) Emergency Kit] 1 mg Recon Soln 1 mg IM .[id number] PRN (Reason: Hypoglycemia) Lactobacillus 1 cap PO DAILY Rodrigue External Lotion 1 applic topical BID Held acetaminophen 325 mg Tablet 650 mg PO Q6H PRN (Reason: pain/fever) Hold Instructions: hold while on scheduled acetaminophen tramadol 50 mg tablet 50 mg PO Q6H PRN (Reason: Pain) Hold Instructions: until oxycodone discontinued Discontinued acetaminophen 325 mg capsule 650 mg PO Q6H hydralazine 50 mg tablet 50 mg PO TID Discharge Orders: Discharge Order (Routine); Ordered 11/07/25 Ordered By: Cristela Navarrete/Other Patient Handouts: Managing Type 2 Diabetes Admission Data Admit Date/Time: 10/30/25 17:23 Attending Provider: Cristela Munguia Admit Provider: Baldo Fried Primary Care Provider: Michel Vasquez Other Providers: Feliberto Elmore; Baldo Fried Hospital Stay Data Consultations 10/30/25 15:03 Consult Orthopedic Surgery Stat 10/30/25 15:50 ED Decision to Admit Stat Procedures Performed Operation Date: 10/31/25 11:45 Actual Procedures p Left Hip Open Reduction Internal Fixation with Cannulated Screw(Left) - Neymar Marino MD Diagnostic Imagining Performed 10/30/25 15:03 CT hip LT wo con Stat 10/30/25 17:16 CT cervical spine wo con Urgent CT head/brain wo con Urgent 10/31/25 FL hip LT 2-3V Routine Pending Results Patient Have Any Pending Studies at Discharge: No Discharge Instructions Given to Patient (Per Discharging Provider) General Orthopedic Discharge Instructions Activity: TTWB left leg Diet: You may resume previous diet. Medications: 1. Narcotic You will likely be sent home from the hospital with a prescription for the narcotic pain medication. Take it as needed. Side effects most commonly include nausea and constipation 2. Resume previous home medications unless otherwise instructed Dressing Care: If there is a soft dressing in place then leave the dressing intact for 5 days. On the you may remove the dressing and leave the stitches open to air or cover them with band-aids. Keep the incision clean and dry If there is a hard splint then leave it in place until your follow-up visit in 2 weeks Showering: If you have a soft dressing you may shower right after the surgery but do not get the dressing wet. After the dressing is removed on the 5th day then you can get the stitches wet in the shower, but do not soak or scrub them. Let the soapy shower water run over the stitches and pat them dry. If you have a hard splint, cover it in a plastic bag and keep it dry. Do not remove it until the follow up appointment. Things To Watch For: 1. Drainage from the incision site that occurs more than one week after your surgery. 2. Increased redness at the incision site. 3. Fever above 102 degrees Fahrenheit. 4. Unusual chest pain or shortness of breath. 5. Call [facility] at with any of the above problems. Follow-Up Visit: Please make arrangements to follow-up with Dr. Marino team approximately 2 weeks after your day of surgery for progress check and staple/suture removal. If you have any questions call Total Time Total Time Spent Total Time Spent (In Minutes): I personally spent: 45 minutes today on clinical care activities including: reviewing chart notes and vital signs discussion with child care supervisor examining and counseling the patient writing orders writing prescriptions, discharge instructions documentation Coding Level of Care Code 76600 INP/OBS DISCH >30 MIN Diagnoses Pathological fracture of left hip due to age-related osteoporosis M80.052A UTI (urinary tract infection) N39.0 Benign essential hypertension I10 Type 2 diabetes mellitus without complications E11.9 Dementia F03.90 Vitamin D3 deficiency E55.9
[2025-11-07 14:52] VITALS: PULSE 53
== END 2025-11-07 15:10 | DRG 481 ==
LOC: ED 11:27 → 2S 17:23 → SUATTDRO 17:23 → 2S 17:56 → 3N 11-02 16:13